=== PATIENT | male | born 1955 | race Caucasian/White ===

== ENCOUNTER 2018-12-16 13:38 | Emergency (ER) | payer MEDICARE ==
--- NOTE | 2018-12-16 13:32 | US ---
EXAMINATION TYPE: US venous doppler duplex LE RT DATE OF EXAM: 12/16/2018 1:13 PM COMPARISON: NONE CLINICAL HISTORY: 62-year-old male M25.561 PAIN RT KNEE,M17.11 OSTEOARTHRITIS RT KNEE. Right leg pain SIDE PERFORMED: Right TECHNIQUE: The lower extremity deep venous system is examined utilizing real time linear array sonog fany with graded compression, doppler sonography and color-flow sonography. FINDINGS: VESSELS IMAGED: External Iliac Vein (EIV) Common Femoral Vein Deep Femoral Vein Greater Saphenous Vein * Femoral Vein Popliteal Vein Small Saphenous Vein * Proximal Calf Veins (* superficial vessels) Right Leg: Positive for DVT Positive DVT Right External Iliac Vein to the Popliteal Vein. IMPRESSION: Extensive acute DVT extending from the right external iliac vein down to the popliteal vein.
[2018-12-16 13:43] VITALS: BP 135/84; PULSE 56; RESP 18; TEMP 97.7
[2018-12-16] MEDS ORDERED: APIXABAN 5 MG TAB PO STA (14:25)
--- NOTE | 2018-12-16 14:30 | ED ---
Extremity Problem HPI - General Chief complaint: Extremity Problem,Nontraumatic Time Seen by Provider: 12/16/18 14:07 Source: patient, RN notes reviewed Mode of arrival: ambulatory Limitations: no limitations - History of Present Illness Initial comments: This a 62-year-old male presents emergency Department from outpatient ultrasound chief complaint of abnormal. PATIENT STATES HE DEVELOPED SOME RIGHT LEG PAIN ON SUNDAY SEEN BY ORTHOPEDICS TODAY SENT FOR AN ULTRASOUND AND IS POSITIVE FOR DVT. HE HAS NO HISTORY DVT DENIES CHEST PAIN OR SHORTNESS OF BREATH. PATIENT STATES HE HAS NO OTHER COMPLAINTS. PATIENT DENIES TAKING ANY CURRENT MEDICATIONS PATIENT DENIES ANY HISTORY OF LIVER OR KIDNEY DISEASE - Related Data Home Medications Medication Instructions Recorded Confirmed Acetaminophen Tab [Tylenol] 500 mg PO Q6H PRN 12/16/18 12/16/18 Previous Rx's Medication Instructions Recorded Apixaban [Eliquis] 0 mg PO DIRECTED #74 tablet 12/16/18 Allergies Allergy/AdvReac Type Severity Reaction Status Date / Time No Known Allergies Allergy Verified 12/16/18 13:59 Review of Systems ROS Statement: Those systems with pertinent positive or pertinent negative responses have been documented in the HPI. ROS Other: All systems not noted in ROS Statement are negative. Past Medical History Past Medical History: No Reported History History of Any Multi-Drug Resistant Organisms: None Reported Past Surgical History: Hernia Repair, Orthopedic Surgery Additional Past Surgical History / Comment(s): Bladder surgery at Past Psychological History: No Psychological Hx Reported Smoking Status: Former smoker Past Alcohol Use History: Rare Past Drug Use History: Marijuana General Exam Limitations: no limitations General appearance: alert, in no apparent distress Head exam: Present: atraumatic, normocephalic, normal inspection Neck exam: Present: normal inspection. Absent: tenderness, meningismus, lymphadenopathy Respiratory exam: Present: normal lung sounds bilaterally. Absent: respiratory distress, wheezes, rales, rhonchi, stridor Cardiovascular Exam: Present: regular rate, normal rhythm, normal heart sounds. Absent: systolic murmur, diastolic murmur, rubs, gallop, clicks Extremities exam: Present: other (Right leg swelling and wall tenderness the right thigh, pulses are palpable in equal bilaterally) Course Vital Signs 12/16/18 13:39 Temperature 97.7 F Pulse Rate 56 L Respiratory 18 Rate Blood Pressure 135/84 O2 Sat by Pulse 99 Oximetry Medical Decision Making - Medical Decision Making 62-year-old male presented from for right leg pain. Patient has evidence of DVT on ultrasound external iliac to popliteal this is uncomplicated DVT, patient's vitals are stable patient will be discharged after Eliquis dose in the emergency department and discharged on a once prescription of Eliquis with close follow- up. Disposition Clinical Impression: Right leg DVT Disposition: HOME SELF-CARE Condition: Stable Instructions (If sedation given, give patient instructions): Deep Vein Thrombosis (DC) Additional Instructions: Please return to the Emergency Department if symptoms worsen or any other alfonso rns. Prescriptions: Apixaban [Eliquis] 0 mg PO DIRECTED #74 tablet Is patient prescribed a controlled substance at d/c from ED?: No Referrals: None,Stated [Primary Care Provider] - 1-2 days Alexandr Ruvalcaba MD [STAFF PHYSICIAN] - 1-2 days Time of Disposition: 14:30
== END 2018-12-16 14:35 | disposition home or self-care (01) ==
LOC: EC 13:38
DX: I82.421 Acute embolism and thrombosis of right iliac vein (principal); I82.431 Acute embolism and thrombosis of right popliteal vein; Z87.891 Personal history of nicotine dependence
CPT/HCPCS: 99283

== ENCOUNTER → 2018-12-30 | Outpatient (CLI) | payer MEDICARE ==
[2018-12-31 01:22] LABS: Cardiolipin Ab IgG Interp NEGATIVE (NEGATIVE); Cardiolipin Ab IgM Interp NEGATIVE (NEGATIVE); Cardiolipin IgA Antibody <0.5 U/mL; Cardiolipin IgM Antibody 1.8 U/mL
[2018-12-31 11:21] LABS: Activated Protein C Resistance 3.32 (1.60-4.90)
[2018-12-31 11:23] LABS: Act Protein C Resist Interp NEG; Anti-Thrombin III Activity 125 % (79-109); Protein C (Activity) 78 % (71-138)
[2018-12-31 11:38] LABS: Protein C Antigen 117 % (72-160)
[2018-12-31 14:14] LABS: Anti-Thrombin III Antigen 115 % (80 - 120); Free Protein S Antigen 92 % (57 - 171)
== END | disposition home or self-care (01) ==
LOC: LABWHC1 15:44
PROVIDERS: ATTEND Registered Nurse Oncology
DX: Z71.3 Dietary counseling and surveillance (principal)
CPT/HCPCS: 36415; 81240; 81241; 83090; 85300; 85301; 85302; 85303; 85306; 85307; 85384; 85613; 86146; 86147

== ENCOUNTER → 2019-01-01 | Outpatient (CLI) | payer MEDICARE | END | disposition home or self-care (01) | LOC: LABWHC1 13:55 | PROVIDERS: ATTEND Registered Nurse Oncology | DX: Z71.3 Dietary counseling and surveillance (principal) | CPT/HCPCS: 81240; 81241 ==

== ENCOUNTER → 2019-05-15 | Outpatient (CLI) | payer MEDICARE ==
--- NOTE | 2019-05-15 12:20 | CTL ---
EXAMINATION TYPE: CT Low Dose Lung DATE OF EXAM ORDERED: 05/15/2019 COMPARISON: HISTORY: . Low Dose CT Lung Screening CT DLP: 55.[address] CTDI: 1.6 mGy IV CONTRAST USED: None. SCREENING VISIT: First visit COMPARISON: None. TECHNIQUE: Low dose computed tomography scan was performed through the chest at 1 millimeter thick se ctions and reconstructed images in the coronal plane at [address] DIAGNOSTIC QUALITY: Satisfactory FINDINGS: LUNG NODULES: Not presentLeft lung: no nodules identified.Right lung: no nodules identified. LUNGS: COPD: Severity: None Fibrosis: Severity:None Lymph nodes: None Other findings: None RIGHT PLEURAL SPACE: Effusion: None Calcification: None Thickening: None Pneumothorax: None LEFT PLEURAL SPACE: Effusion: None Calcification: None Thickening: None Pneumothorax: None HEART: Heart Size: Mildly enlarged Coronary calcification: Mild Pericardial effusion: None OTHER FINDINGS: Upper abdomen: No significant abnormality Bony thorax: Degenerative changes Supraclavicular region: No significant abnormalityOther: No significant abnormalityI IMPRESSION: Negative FOLLOW UP CT CHEST RECOMMENDATION: Follow-up screening in one year. Smoking cessation advised. CT LUNG RAD: LUNG RAD CATEGORY 1 negative
--- NOTE | 2019-05-16 07:34 | US ---
EXAMINATION TYPE: US venous doppler duplex LE RT DATE OF EXAM: 05/15/2019 12:19 PM COMPARISON: 12/16/2018 CLINICAL HISTORY: I82.421,I82.431 DVT. follow up DVT. On blood thinners. No swelling or redness. N o pain. SIDE PERFORMED: Right TECHNIQUE: The lower extremity deep venous system is examined utilizing real time linear array sonog fany with graded compression, doppler sonography and color-flow sonography. VESSELS IMAGED: External Iliac Vein (EIV) Common Femoral Vein Deep Femoral Vein Greater Saphenous Vein * Femoral Vein Popliteal Vein Small Saphenous Vein * Proximal Calf Veins (* superficial vessels) Right Leg: Few peripheral echoes are seen of the right femoral vein appearing as an organizing throm bus. Incomplete compression of the right femoral vein. Popliteal vein appears compressible. Calf vein s demonstrate good blood flow. 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
[2019-05-16 13:24] LABS: APTT 35 Sec(s) (<43); Dilute Russell Viper Venom 44 Sec(s) (<44)
== END | disposition home or self-care (01) ==
LOC: RADCTMAIN 11:36
PROVIDERS: ATTEND Internal Medicine Hematology & Oncology
DX: Z12.2 Encounter for screening for malignant neoplasm of respiratory organs (principal); I82.511 Chronic embolism and thrombosis of right femoral vein; Z87.891 Personal history of nicotine dependence
CPT/HCPCS: 85730; 85613; 93971; G0297

== ENCOUNTER → 2019-09-17 | Outpatient (CLI) | payer MEDICARE ==
--- NOTE | 2019-09-17 10:09 | US ---
EXAMINATION TYPE: US venous doppler duplex LE RT DATE OF EXAM: 09/17/2019 10:02 AM COMPARISON: US May 15, 2019. CLINICAL HISTORY: I82.421, I82.431 DVT. H/O DVT, follow up study, pt states no complaints at this srikanth e SIDE PERFORMED: Right TECHNIQUE: The lower extremity deep venous system is examined utilizing real time linear array sonog fany with graded compression, doppler sonography and color-flow sonography. VESSELS IMAGED: External Iliac Vein (EIV) Common Femoral Vein Deep Femoral Vein Greater Saphenous Vein * Femoral Vein Popliteal Vein Small Saphenous Vein * Proximal Calf Veins (* superficial vessels) Right Leg: Negative for acute DVT, essentially unchanged from previous study, slight partial maurilio monster right femoral veins most likely due to chronic thrombus Probable Zuleta's cyst right pop fossa= 3.4 x 0.6 x 2.5 cm Grayscale, color doppler, spectral doppler imaging performed of the deep veins of the right lower ext remity. Persistent low lying echoes along the periphery of the right superficial femoral vein with i ncomplete compressibility. IMPRESSION: Persistent chronic partial occlusive thrombus of the right superficial femoral vein. No significant interval change. No new acute DVT identified.
== END | disposition home or self-care (01) ==
LOC: RADUSWWP 09:20
PROVIDERS: ATTEND Internal Medicine Hematology & Oncology
DX: I82.421 Acute embolism and thrombosis of right iliac vein (principal); I82.431 Acute embolism and thrombosis of right popliteal vein; Z71.3 Dietary counseling and surveillance

== ENCOUNTER → 2019-12-16 | Outpatient (CLI) | payer MEDICARE ==
--- NOTE | 2019-12-16 16:10 | US ---
EXAMINATION TYPE: US venous doppler duplex LE RT DATE OF EXAM: 12/16/2019 9:14 AM COMPARISON: 09/17/2019 CLINICAL HISTORY: 63-year-old male I82.421 Acute embolism of right iliac vein. History of DVT, follow -up to previous SIDE PERFORMED: Right TECHNIQUE: The lower extremity deep venous system is examined utilizing real time linear array sonog fany with graded compression, doppler sonography and color-flow sonography. FINDINGS: VESSELS IMAGED: External Iliac Vein (EIV) Common Femoral Vein Deep Femoral Vein Greater Saphenous Vein * Femoral Vein Popliteal Vein Small Saphenous Vein * Proximal Calf Veins (* superficial vessels) Right Leg: Negative for any occlusive, acute DVT; similar appearance to prior with a small amount of mural-based nonocclusive clot in the mid and lower femoral vein. IMPRESSION: Stable minimal mural-based chronic and nonocclusive DVT in the mid and lower femoral vein. No new or acute DVT seen within the right lower extremity imaged from the groin to the upper calf.
== END | disposition home or self-care (01) ==
LOC: RADUSWWP 08:54
PROVIDERS: ATTEND Internal Medicine Hematology & Oncology
DX: I82.511 Chronic embolism and thrombosis of right femoral vein (principal)

== ENCOUNTER → 2020-04-28 | Outpatient (CLI) | payer MEDICARE ==
--- NOTE | 2020-04-28 14:53 | CT ---
EXAMINATION TYPE: CT cervical spine wo con DATE OF EXAM: 04/28/2020 COMPARISON: Outside MRI cervical spine February 23, 2020. Outside cervical spine x-ray April 15 HISTORY: Neck pain with arm and hand numbness. CT DLP: 466.3 mGycm. Automated Exposure Control for Dose Reduction was Utilized. TECHNIQUE: CT scan of the cervical spine is obtained without contrast, axial images are obtained, sa gittal and coronal reformatted images are also reviewed. FINDINGS: Cervical spine is visualized in its entirety from C1 through upper thoracic levels, demonst rates slight grade 1 anterolisthesis C4 on C5 and retrolisthesis C5 on C6. Vertebral body heights are maintained. Prevertebral soft tissue appears within normal limits. The C1-C2 articulation is within normal limits on the coronal images. Mild disc space narrowing C4-C5 level with mild/moderate anteri or spurring. Mild to moderate disc space narrowing and anterior spurring C5-C6 level. Posterior spur disc complex effaces the anterior thecal sac at C5-C6 level. Posterior disc herniation C6-C7 level ef faces the anterior thecal sac. Review of axial images shows C2-C3 and C3-C4 level to appear within normal limits. Axial images at C4-C5 level show tiny central disc protrusion mildly effacing the anterior thecal sac , patent bilateral neural foramina. Findings correlate with outside MRI. Axial images at C5-C6 level show spondylolisthesis with posterior spur disc complex effacing the ante rior thecal sac and with mild left-sided neural foraminal narrowing. Axial images at C6-C7 level showed broad based right paracentral disc protrusion effacing the anterio r thecal sac and causing [id number] right-sided neural foraminal narrowing. Findings correlate with outside MRI. Axial images at C7-T1 level are within normal limits. IMPRESSION: Multilevel degenerative changes C4-C5 through C6-C7 levels as detailed above. No signifi cant degenerative progression from outside MRI.
== END | disposition home or self-care (01) ==
LOC: RADCTMAIN 13:20
PROVIDERS: ATTEND Orthopaedic Surgery
DX: M47.812 Spondylosis without myelopathy or radiculopathy, cervical region (principal)
CPT/HCPCS: 72125

== ENCOUNTER → 2020-12-14 | Outpatient (CLI) | payer MEDICARE ==
--- NOTE | 2020-12-14 19:04 | US ---
EXAMINATION TYPE: US venous doppler duplex LE RT DATE OF EXAM: 12/14/2020 12:39 PM COMPARISON: 12/16/2019 CLINICAL HISTORY: 64-year-old male I82.421 Acute embolism R leg. SIDE PERFORMED: Right TECHNIQUE: The lower extremity deep venous system is examined utilizing real time linear array sonog fany with graded compression, doppler sonography and color-flow sonography. FINDINGS: VESSELS IMAGED: Common Femoral Vein Deep Femoral Vein Greater Saphenous Vein * Femoral Vein Popliteal Vein Small Saphenous Vein * Proximal Calf Veins (* superficial vessels) Right Leg: Appears negative for DVT IMPRESSION: No evidence for DVT within the right lower extremity imaged from the groin to the upper calf.
== END | disposition home or self-care (01) ==
LOC: RADUSWWP 12:11
PROVIDERS: ATTEND Internal Medicine Hematology & Oncology
DX: I82.421 Acute embolism and thrombosis of right iliac vein (principal)

== ENCOUNTER 2022-10-30 01:26 | Emergency (ER) | payer MEDICARE ==
--- NOTE | 2022-10-30 03:52 | ED ---
Extremity Problem HPI - General Chief complaint: Extremity Problem,Nontraumatic Stated complaint: Blood Clot Left Leg Time Seen by Provider: 10/30/22 03:22 Source: patient, RN notes reviewed, old records reviewed Mode of arrival: wheelchair Limitations: no limitations - History of Present Illness Initial comments: This is a 66-year-old male to the emergency department for evaluation. Patient states he has history of blood clot in his right leg and has severe pain in his left leg. Patient does feel like he has a blood clot coming to the emergency d epartment today for evaluation. Patient is not currently on blood thinners he has been on A[place] in the past from prior resulting DVT. No chest pain or shortness of breath, patient again does have history of DVT MD Complaint: extremity pain, extremity swelling -: days(s) Location: left, lower extremity -: Yes myalgia Radiation: proximal Severity scale (1-10): 7 Quality: aching Consistency: constant Improves with: nothing Worsens with: nothing Associated Symptoms: denies other symptoms - Related Data Home Medications Medication Instructions Recorded Confirmed Acetaminophen Tab [Tylenol] 500 mg PO Q6H PRN 12/16/18 12/16/18 Previous Rx's Medication Instructions Recorded Apixaban [Eliquis] 0 mg PO DIRECTED #74 tablet 12/16/18 Apixaban [Eliquis Starter Pack 5 - 10 mg PO DIRECTED 30 Days 10/30/22 (for VTE)] #1 each Apixaban [Eliquis] 5 mg PO BID #60 tab 10/30/22 Allergies Allergy/AdvReac Type Severity Reaction Status Date / Time No Known Allergies Allergy Verified 10/30/22 01:31 Review of Systems ROS Statement: Those systems with pertinent positive or pertinent negative responses have been documented in the HPI. ROS Other: All systems not noted in ROS Statement are negative. Past Medical History Past Medical History: No Reported History Additional Past Medical History / Comment(s): DVT right leg History of Any Multi-Drug Resistant Organisms: None Reported Past Surgical History: Hernia Repair, Orthopedic Surgery Additional Past Surgical History / Comment(s): Bladder surgery at Past Psychological History: No Psychological Hx Reported Past Alcohol Use History: Rare Past Drug Use History: Marijuana General Exam Limitations: no limitations General appearance: alert, in no apparent distress Head exam: Present: atraumatic, normocephalic, normal inspection Eye exam: Present: normal appearance, PERRL, EOMI. Absent: scleral icterus, conjunctival injection, periorbital swelling ENT exam: Present: normal exam, mucous membranes moist Neck exam: Present: normal inspection. Absent: tenderness, meningismus, lymphadenopathy Respiratory exam: Present: normal lung sounds bilaterally. Absent: respiratory distress, wheezes, rales, rhonchi, stridor Cardiovascular Exam: Present: regular rate, normal rhythm, normal heart sounds. Absent: systolic murmur, diastolic murmur, rubs, gallop, clicks GI/Abdominal exam: Present: soft, normal bowel sounds. Absent: distended, tenderness, guarding, rebound, rigid Extremities exam: Present: normal inspection, full ROM, normal capillary refill, calf tenderness, other (Left leg tenderness). Absent: tenderness, pedal edema, joint swelling Back exam: Present: normal inspection Neurological exam: Present: alert, oriented X3, CN II-XII intact Psychiatric exam: Present: normal affect, normal mood Skin exam: Present: warm, dry, intact, normal color. Absent: rash Course Vital Signs 10/30/22 10/30/22 10/30/22 01:27 04:41 06:00 Temperature 97.8 F 97.9 F Pulse Rate 91 68 80 Respiratory 18 16 16 Rate Blood Pressure 146/81 111/72 108/73 O2 Sat by Pulse 100 99 98 Oximetry - Reevaluation(s) Reevaluation #1: 10/30/22 06:28 Medical records reviewed Reevaluation #2: 10/30/22 06:29 Patient has no change in symptoms here in the ER Reevaluation #3: 10/30/22 06:29 Patient and informed results and questions answered Reevaluation #4: 10/30/22 06:29 Was pt. sent in by a medical professional or institution (, PA, PROJECT DEVELOPMENT LEADER, urgent care, hospital, or [facility]...) When possible be specific @ -no Did you speak to anyone other than the patient for history (EMS, parent, family, police, friend...)? What history was obtained from this source @ -no Did you review nursing and triage notes (agree or disagree)? Why? @ -agree Are old charts reviewed (outside hosp., previous admission, EMS record, old EKG, old radiological studies, urgent care reports/EKG's, [facility] records)? Report findings @ -yes Differential Diagnosis (chest pain, altered mental status, abdominal pain women, abdominal pain men, vaginal bleeding, weakness, fever, dyspnea, syncope, headache, dizziness, GI bleed, back pain, seizure, CVA, palpatations, mental health, musculoskeletal)? @ -prior EKG interpreted by me (3pts min.). @ -no X-rays interpreted by me (1pt min.). @ -no CT interpreted by me (1pt min.). @ -no U/S interpreted by me (1pt. min.). @ -yes What testing was considered but not performed or refused? (CT, X-rays, U/S, labs)? Why? @ -none What meds were considered but not given or refused? Why? @ -none Did you discuss the management of the patient with other professionals (professionals i.e. , PA, PROJECT DEVELOPMENT LEADER, lab, RT, psych nurse, social work job titles, lean engineer, teacher, driver license reviewing officer, case finishing machine adjuster)? Give summary @ -no Was smoking cessation discussed for >3mins.? @ -no Was critical care preformed (if so, how long)? @ -no Were there social determinants of health that impacted care today? How? (Homelessness, low income, unemployed, alcoholism, drug addiction, transportation, low edu. Level, literacy, decrease access to med. care, [facility], rehab)? @ -none Was there de-escalation of care discussed even if they declined (Discuss DNR or withdrawal of care, Hospice)? DNR status @ -no What co-morbidities impacted this encounter? (DM, HTN, Smoking, COPD, CAD, Cancer, CVA, ARF, Chemo, Hep., AIDS, mental health diagnosis, sleep apnea, morbid obesity)? @ -none Was patient admitted / discharged? Hospital course, mention meds given and route, prescriptions, significant lab abnormalities, going to OR and other pertinent info. @ -66 male to the emergency department for evaluation of significant left lower extremity pain positive for DVT patient will be placed on Eliquis and can be discharged home no chest pain or shortness of breath Discharged Undiagnosed new problem with uncertain prognosis? @ -no Drug Therapy requiring intensive monitoring for toxicity (Heparin, Nitro, Insulin, Cardizem)? @ -no Were any procedures done? @ -no Diagnosis/symptom? @ -Positive left leg for DVT Acute, or Chronic, or Acute on Chronic? @ -Acute Uncomplicated (without systemic symptoms) or Complicated (systemic symptoms)? @ -Complicated Side effects of treatment? @ -no Exacerbation, Progression, or Severe Exacerbation? @ -exacerbation Poses a threat to life or bodily function? How? (Chest pain, [place], [place], pneumonia, PE, COPD, DKA, ARF, appy, cholecystitis, CVA, Diverticulitis, Homicidal, Suicidal, threat to staff... and all critical care pts) @ -yes DVT leading to PE Medical Decision Making - Medical Decision Making 66 male to the emergency department for evaluation of significant left lower extremity pain positive for DVT patient will be placed on Eliquis and can be discharged home no chest pain or shortness of breath - Radiology Data Radiology results: report reviewed (Ultrasound of the Left Lower Extremity Positive for DVT), image reviewed Disposition Clinical Impression: Deep vein thrombosis (DVT) of lower extremity Disposition: HOME SELF-CARE Condition: Good Instructions (If sedation given, give patient instructions): Deep Vein Thrombosis (ED) Prescriptions: Apixaban [Eliquis] 5 mg PO BID #60 tab Apixaban [Eliquis Starter Pack (for VTE)] 5 - 10 mg PO DIRECTED 30 Days #1 each Is patient prescribed a controlled substance at d/c from ED?: No Referrals: Gentry Clayton MD [Primary Care Provider] - 1-2 days Time of Disposition: 06:00
--- NOTE | 2022-10-30 03:56 | US ---
EXAM: US Duplex Left Lower Extremity Veins CLINICAL HISTORY: ITS.REASON US Reason: pain TECHNIQUE: Real-time duplex ultrasound scan of the left lower extremity veins integrating B-mode two-dimensional vascular structure, Doppler spectral analysis, color flow Doppler imaging and compression. COMPARISON: No relevant prior studies available. IMPRESSION: Extensive thrombosis throughout the common femoral vein, femoral vein, popliteal vein, and into the calf. <MYCVCSECTION> Communications: 10/30/22 04:02 Verify Receipt Verified receipt with JOANN Garrison in the ER for Dr. García on 10/30 04:01 (-04:00)
[2022-10-30 04:42] VITALS: RESP 16
[2022-10-30] MEDS ORDERED: APIXABAN 5 MG TAB PO STA (05:52)
[2022-10-30 06:03] VITALS: BP 108/73; PULSE 80; TEMP 97.9
== END 2022-10-30 06:03 | disposition home or self-care (01) ==
LOC: EC 01:26
DX: I82.432 Acute embolism and thrombosis of left popliteal vein (principal); I82.412 Acute embolism and thrombosis of left femoral vein; F12.90 Cannabis use, unspecified, uncomplicated
CPT/HCPCS: 99284

== ENCOUNTER 2023-05-21 15:03 | Emergency (ER) | payer MEDICARE ==
[2023-05-21 15:46] VITALS: RESP 18
--- NOTE | 2023-05-21 15:46 | ED ---
General Adult HPI - General Chief complaint: Extremity Injury, Upper Stated complaint: Fall Time Seen by Provider: 05/21/23 15:44 Source: patient, RN notes reviewed Mode of arrival: ambulatory Limitations: no limitations - History of Present Illness Initial comments: Patient is a 67-year-old male presented to ER with chief complaint of a fall. Patient states she slipped while wearing socks on his hardwood floor landing on his left shoulder. Patient states he does take Eliquis. He states that the pain is now traveling up into his neck. He states he does not remember hitting his head or loss of consciousness. Patient reports he does have a history of a rotator injury on the left side. Denies any paresthesias or other injuries. Denies any dizziness, shortness of breath, chest pain prior to fall. - Related Data Home Medications Medication Instructions Recorded Confirmed Acetaminophen Tab [Tylenol] 500 mg PO Q6H PRN 12/16/18 12/16/18 Previous Rx's Medication Instructions Recorded Apixaban [Eliquis] 0 mg PO DIRECTED #74 tablet 12/16/18 Apixaban [Eliquis Starter Pack 5 - 10 mg PO DIRECTED 30 Days 10/30/22 (for VTE)] #1 each Apixaban [Eliquis] 5 mg PO BID #60 tab 10/30/22 Allergies Allergy/AdvReac Type Severity Reaction Status Date / Time No Known Allergies Allergy Verified 10/30/22 01:31 Review of Systems ROS Statement: Those systems with pertinent positive or pertinent negative responses have been documented in the HPI. ROS Other: All systems not noted in ROS Statement are negative. Past Medical History Past Medical History: No Reported History Additional Past Medical History / Comment(s): DVT right leg History of Any Multi-Drug Resistant Organisms: None Reported Past Surgical History: Hernia Repair, Orthopedic Surgery Additional Past Surgical History / Comment(s): Bladder surgery at Past Psychological History: No Psychological Hx Reported Smoking Status: Former smoker Past Alcohol Use History: Rare Past Drug Use History: Marijuana General Exam Limitations: no limitations General appearance: alert, in no apparent distress Head exam: Present: atraumatic, normocephalic, normal inspection Eye exam: Present: normal appearance, PERRL, EOMI. Absent: scleral icterus, conjunctival injection, periorbital swelling Pupils: Present: normal accommodation ENT exam: Present: normal exam, mucous membranes moist Neck exam: Present: normal inspection. Absent: tenderness, meningismus, lymphadenopathy Respiratory exam: Present: normal lung sounds bilaterally. Absent: respiratory distress, wheezes, rales, rhonchi, stridor Cardiovascular Exam: Present: regular rate, normal rhythm, normal heart sounds. Absent: systolic murmur, diastolic murmur, rubs, gallop, clicks Extremities exam: Present: tenderness (Left AC joint.), normal capillary refill, other (2+ left radial pulse. Sensation intact. Patient had limited range of motion of shoulder due to pain.) Neurological exam: Present: alert, oriented X3, CN II-XII intact Psychiatric exam: Present: normal affect, normal mood Skin exam: Present: warm, dry, intact, normal color. Absent: rash Course Vital Signs 05/21/23 05/21/23 15:20 16:54 Temperature 98.6 F 97.9 F Pulse Rate 77 65 Respiratory 18 18 Rate Blood Pressure 144/84 153/80 O2 Sat by Pulse 99 100 Oximetry Medical Decision Making - Medical Decision Making Was pt. sent in by a medical professional or institution (, PA, COMMERCIAL ENERGY AUDITOR, urgent care, hospital, or care home...) When possible be specific @ -No Did you speak to anyone other than the patient for history (EMS, parent, family, police, friend...)? What history was obtained from this source @ -No Did you review nursing and triage notes (agree or disagree)? Why? @ -I reviewed and agree with nursing and triage notes Were old charts reviewed (outside hosp., previous admission, EMS record, old EKG, old radiological studies, urgent care reports/EKG's, care home records)? Report findings @ -No old charts were reviewed Differential Diagnosis (chest pain, altered mental status, abdominal pain women, abdominal pain men, vaginal bleeding, weakness, fever, dyspnea, syncope, headache, dizziness, GI bleed, back pain, seizure, CVA, palpatations, mental health, musculoskeletal)? @ -Differential Musculoskeletal Muscular strain, contusion, ligament sprain, fracture, arthritis, septic arthritis, bursitis, cellulitis, muscle spasm, nerve compression, DVT, arterial occlusion, herpes zoster, electrolyte abnormality, tumor.... This is not meant to be in all inclusive list EKG interpreted by me (3pts min.). @ -None X-rays interpreted by me (1pt min.). @ -Left shoulder x-ray interpreted by me shows a vertically oriented clavicle fracture located 2 cm medial to AC joint. CT interpreted by me (1pt min.). @ -CT brain C-spine interpreted by me shows no acute process. U/S interpreted by me (1pt. min.). @ -None done What testing was considered but not performed or refused? (CT, X-rays, U/S, labs)? Why? @ -None What meds were considered but not given or refused? Why? @ -None Did you discuss the management of the patient with other professionals (professionals i.e. Dr., PA, COMMERCIAL ENERGY AUDITOR, lab, RT, psych nurse, administrator social welfare, corporation lawyer, teacher, mechanical engineering officer, case operator)? Give summary @ -No Was smoking cessation discussed for >3mins.? @ -No Was critical care preformed (if so, how long)? @ -No Were there social determinants of health that impacted care today? How? (Homelessness, low income, unemployed, alcoholism, drug addiction, transportation, low edu. Level, literacy, decrease access to med. care, fdc, rehab)? @ -No Was there de-escalation of care discussed even if they declined (Discuss DNR or withdrawal of care, Hospice)? DNR status @ -No What co-morbidities impacted this encounter? (DM, HTN, Smoking, COPD, CAD, Cancer, CVA, ARF, Chemo, Hep., AIDS, mental health diagnosis, sleep apnea, morbid obesity)? @ -History of DVTs on Eliquis Was patient admitted / discharged? Hospital course, mention meds given and route, prescriptions, significant lab abnormalities, going to OR and other pertinent info. @ -Discharge. Patient is a 67-year-old male presented to ER with a chief complaint of a fall. History and physical exam are completed. Vitals stable. No signs of acute distress. Patient's left upper extremity neurovascularly i ntact. Limited active range of motion due to pain. Patient received [place] in the ER with mild relief of his pain. X-ray of left shoulder interpreted by me shows a vertically oriented clavicle fracture located 2 cm medial to AC joint. CT brain performed due to concern of head injury and patient is on Eliquis. CT negative for acute process. Patient placed in a sling. Results discussed with patient, all questions answered. Advised him to follow-up with orthopedics in the next 1 to 2 days. Referral given. Return parameters discussed. Patient be discharged stable condition with follow-up to orthopedics. Patient expressed understanding and agreement with care plan. Undiagnosed new problem with uncertain prognosis? @ -No Drug Therapy requiring intensive monitoring for toxicity (Heparin, Nitro, Insulin, Cardizem)? @ -No Were any procedures done? @ -No Diagnosis/symptom? @ -Left clavicle fracture/fall Acute, or Chronic, or Acute on Chronic? @ -Acute Uncomplicated (without systemic symptoms) or Complicated (systemic symptoms)? @ -Uncomplicated Side effects of treatment? @ -No Exacerbation, Progression, or Severe Exacerbation? @ -No Poses a threat to life or bodily function? How? (Chest pain, [place], MS, pneumonia, PE, COPD, DKA, ARF, appy, cholecystitis, CVA, Diverticulitis, Homicidal, Suicidal, threat to staff... and all critical care pts) @ -No - Radiology Data Radiology results: report reviewed, image reviewed Disposition Clinical Impression: Clavicle fracture Disposition: HOME SELF-CARE Condition: Stable Instructions (If sedation given, give patient instructions): Clavicle Fracture (DC) Additional Instructions: Please follow-up with orthopedics in the next 1 to 2 days. Return to the ER for any new or worsening symptoms. Is patient prescribed a controlled substance at d/c from ED?: No Referrals: None,Stated [Primary Care Provider] - 1-2 days Josue Mathis MD [STAFF PHYSICIAN] - 1-2 days Time of Disposition: 16:44
--- NOTE | 2023-05-21 16:21 | CT ---
EXAMINATION TYPE: CT brain cspine wo con DATE OF EXAM: 05/21/2023 COMPARISON: CT cervical spine dated 04/28/2020 HISTORY: fall on thinners CT DLP: 1180.2 mGycm Automated exposure control for dose reduction was used. TECHNIQUE: CT scan of the head and cervical spine are performed without contrast. Findings: Head CT: Ventricles, basal cisterns and sulci over convexities within normal limits and there is no mass, mass effect or shift of midline structures. There is a moderate focal area of encephalomalacia involving the right parietal cortex and subcortica l white matter consistent with a remote infarct. There is marked decreased density in the periventricular white matter consistent with chronic ischemi c white matter demyelination. There is no acute intra or extra-axial hemorrhage. Posterior fossa including the brainstem, fourth ventricle and cerebellar pontine angles are grossly n ormal. The intraorbital contents appear normal and symmetric. Visualized paranasal sinuses are well aerated. The calvarium is intact. CT cervical spine: Craniovertebral junction relationships and prevertebral soft tissues are normal. The cervical vertebral segments are normal in height and alignment and there is no fracture subluxati on. There is moderate degenerative disc disease with moderate disc space narrowing and spondylosis at the C3-4-5 and C5-6 levels. The facet joints are intact. There is moderate degeneration of the C5-6 unco vertebral joint on the left. The bony cervical canal is widely patent. There is mild bony neural foraminal encroachment at C5-6 on the left. The paraspinal soft tissues unremarkable. IMPRESSION: 1. Head CT: No acute bleed or mass effect. Remote right parietal infarct. 2. CT cervical spine: No acute trauma. Mild degenerative changes as described above.
[2023-05-21] MEDS: HYDROcodone/APAP 5-325MG 1 EACH TAB PO STA (16:26)
--- NOTE | 2023-05-21 16:36 | XR ---
PROCEDURE: XR shoulder complete LT - 3V DATE AND TIME: 05/21/2023 4:16 PM CLINICAL INDICATION: PHH; fall, pain TECHNIQUE: Department protocol COMPARISON: None FINDINGS/IMPRESSION: There is a left clavicle vertically-oriented fracture located 2 cm medial to the acromioclavicular hoang int. No other fractures. Glenohumeral joint is congruent.
[2023-05-21] MEDS: ACET/COD 300 MG/30 MG STARTER PACK 6 TAB BTL PO STA (16:59)
[2023-05-21 17:13] VITALS: BP 153/80; PULSE 65; TEMP 97.9
== END 2023-05-21 17:07 | disposition home or self-care (01) ==
LOC: EC 15:03
DX: S42.032A Displaced fracture of lateral end of left clavicle, initial encounter for closed fracture (principal); F12.90 Cannabis use, unspecified, uncomplicated; Z87.891 Personal history of nicotine dependence; W01.0XXA Fall on same level from slipping, tripping and stumbling without subsequent striking against object, initial encounter
CPT/HCPCS: 70450; 72125; 99284

== ENCOUNTER 2023-05-24 16:10 | Emergency (ER) | payer MEDICARE ==
--- NOTE | 2023-05-24 18:33 | XR ---
EXAMINATION: XR chest 2V: 05/24/2023 5:18 PM CLINICAL INDICATION: Weakness TECHNIQUE: Departmental protocol COMPARISON: None FINDINGS/IMPRESSION: The lungs are clear, and the pleural spaces are negative. The cardiac silhouette is not enlarged. The soft tissues are negative for acute findings. The known left clavicle fracture demonstrated. No other acute skeletal findings.
[2023-05-24] MEDS: SODIUM CHLORIDE 0.9% 500 ML 500 ML IV STA (18:38)
--- NOTE | 2023-05-24 18:38 | XR ---
PROCEDURE: XR lumbar spine 2 or 3V - 3V DATE AND TIME: 05/24/2023 5:27 PM CLINICAL INDICATION: PHH; Lower extremity weakness TECHNIQUE: Department protocol COMPARISON: None FINDINGS: There is no fracture or malalignment. Moderate lumbar spondylosis changes seen at all levels. IMPRESSION: No definite acute process.
[2023-05-24 18:51] LABS: Basophils % (A) 0 %; Eosinophils # (A) 0.1 k/uL (0-0.7); Eosinophils % (A) 1 %; HCT 35.4 % (39.0-53.0); HGB 12.1 gm/dL (13.0-17.5); Lymphocytes # (A) 1.2 k/uL (1.0-4.8); Lymphocytes % (A) 17 %; MCH 34.3 pg (25.0-35.0); MCHC 34.2 g/dL (31.0-37.0); MCV 100.4 fL (80.0-100.0); Mean Platelet Volume 7.5; Monocytes # (A) 0.5 k/uL (0-1.0); Monocytes % (A) 7 %; Neutrophils # (A) 5.2 k/uL (1.3-7.7); Neutrophils % (A) 73 %; Platelet Count 215 k/uL (150-450); RBC 3.52 m/uL (4.30-5.90); RDW 12.8 % (11.5-15.5); WBC 7.2 k/uL (3.8-10.6)
[2023-05-24 19:08] LABS: ALT 17 U/L (4-49); AST 20 U/L (17-59); African American GFR (CKD) >90 (>60 ml/min/1.73 sqM); Albumin 3.5 g/dL (3.5-5.0); Alkaline Phosphatase 74 U/L (38-126); Anion Gap 7 mmol/L; Blood Urea Nitrogen 24 mg/dL (9-20); Calcium 8.6 mg/dL (8.4-10.2); Carbon Dioxide 20 mmol/L (22-30); Chloride 114 mmol/L (98-107); Glucose 83 mg/dL (74-99); Magnesium 1.7 mg/dL (1.6-2.3); Non-African American GFR(CKD) >90 (>60 ml/min/1.73 sqM); Potassium 4.5 mmol/L (3.5-5.1); Sodium 141 mmol/L (137-145); Total Bilirubin 0.6 mg/dL (0.2-1.3); Total Protein 6.1 g/dL (6.3-8.2)
[2023-05-24 19:10] LABS: Prothrombin Time 11.2 sec (10.0-12.5)
[2023-05-24 19:44] LABS: Partial Thromboplastin Time 19.8 sec (22.0-30.0)
[2023-05-24] MEDS: ACETAMINOPHEN TAB 500 MG TAB PO STA (20:09)
[2023-05-24] MEDS: IBUPROFEN 600 MG TAB PO STA (20:09)
--- NOTE | 2023-05-24 20:57 | ED ---
General Adult HPI - General Source: patient, EMS, RN notes reviewed, old records reviewed Mode of arrival: EMS Limitations: no limitations <Michael Rapp - Last Filed: 05/24/23 21:10> - General Source: RN notes reviewed, old records reviewed Mode of arrival: EMS Limitations: no limitations, altered mental status - History of Present Illness -: days(s) Severity scale (1-10): 0 Consistency: constant Improves with: none Worsens with: none Associated Symptoms: confusion Treatments Prior to Arrival: none <Michael Freedman - Last Filed: 05/25/23 06:30> - General Chief complaint: Fall Stated complaint: Weakness Time Seen by Provider: 05/24/23 17:00 - History of Present Illness Initial comments: This is a 67-year-old male who presents to the emergency department stating that for the last 6 months has been extremely weak and keeps falling. The other day he fell and broke his clavicle. Patient comes in today stating he fell but did not hurt himself but he does know why he is so weak. Patient denies of fever patient denies a headache patient denies numbness weakness. Patient has any chest pain difficulty breathing or shortness of breath. Patient has any abdominal pain patient has nausea vomiting diarrhea. Patient states he only is weak in his legs and some days he feels fine but the last couple has been extremely weak to the point where he feels like he is going to fall and actually did fall today. (Michael Rapp) - Related Data Previous Rx's Medication Instructions Recorded Apixaban [Eliquis] 5 mg PO BID #60 tab 10/30/22 Amoxic-Pot Clav 875-125Mg 1 tab PO Q12HR #20 tablet 05/25/23 [Augmentin 875-125] Allergies Allergy/AdvReac Type Severity Reaction Status Date / Time No Known Allergies Allergy Verified 05/24/23 17:36 Review of Systems ROS Other: All systems not noted in ROS Statement are negative. <Michael Rapp - Last Filed: 05/24/23 21:10> ROS Other: All systems not noted in ROS Statement are negative. <Michael Freedman - Last Filed: 05/25/23 06:30> ROS Statement: Those systems with pertinent positive or pertinent negative responses have been documented in the HPI. Past Medical History Past Medical History: No Reported History Additional Past Medical History / Comment(s): DVT right leg History of Any Multi-Drug Resistant Organisms: None Reported Past Surgical History: Hernia Repair, Orthopedic Surgery Additional Past Surgical History / Comment(s): Bladder surgery at Past Psychological History: No Psychological Hx Reported Smoking Status: Former smoker Past Alcohol Use History: Rare Past Drug Use History: Marijuana <Michael Rapp - Last Filed: 05/24/23 21:10> General Exam Limitations: no limitations <Michael Rapp - Last Filed: 05/24/23 21:10> General appearance: alert, in no apparent distress Head exam: Present: atraumatic, normocephalic, normal inspection Eye exam: Present: normal appearance, PERRL, EOMI. Absent: scleral icterus, conjunctival injection, periorbital swelling ENT exam: Present: normal exam, mucous membranes moist Neck exam: Present: normal inspection. Absent: tenderness, meningismus, lymphadenopathy Respiratory exam: Present: normal lung sounds bilaterally. Absent: respiratory distress, wheezes, rales, rhonchi, stridor Cardiovascular Exam: Present: regular rate, normal rhythm, normal heart sounds. Absent: systolic murmur, diastolic murmur, rubs, gallop, clicks GI/Abdominal exam: Present: soft, normal bowel sounds. Absent: distended, tenderness, guarding, rebound, rigid Extremities exam: Present: normal inspection, full ROM, normal capillary refill. Absent: tenderness, pedal edema, joint swelling, calf tenderness Back exam: Present: normal inspection Neurological exam: Present: alert, oriented X3, CN II-XII intact Psychiatric exam: Present: normal affect, normal mood Skin exam: Present: warm, dry, intact, normal color. Absent: rash <Michael Freedman - Last Filed: 05/25/23 06:30> - General Exam Comments Initial Comments: GENERAL: Patient is well-developed and well-nourished. Patient is nontoxic and well- hydrated and is in mild distress. After patient had been here while the patient did spike a fever ENT: Neck is soft and supple. No significant lymphadenopathy is noted. Oropharynx is clear. Moist mucous membranes. Neck has full range of motion without eliciting any pain. EYES: The sclera were anicteric and conjunctiva were pink and moist. Extraocular movements were intact and pupils were equal round and reactive to light. E yelids were unremarkable. PULMONARY: Unlabored respirations. Good breath sounds bilaterally. No audible rales rhonchi or wheezing was noted. CARDIOVASCULAR: There is a regular rate and rhythm without any murmurs gallops or rubs. ABDOMEN: Soft and nontender with normal bowel sounds. SKIN: Skin is clear with no lesions or rashes and otherwise unremarkable. NEUROLOGIC: Patient is alert and oriented x3. Cranial nerves II through XII are grossly intact. Motor and sensory are also intact. Normal speech, volume and content. Symmetrical smile. MUSCULOSKELETAL: Normal extremities with adequate strength and full range of motion. LYMPHATICS: No significant lymphadenopathy is noted PSYCHIATRIC: Normal psychiatric evaluation. (Michael Rapp) Course <Michael Freedman - Last Filed: 05/25/23 06:30> Vital Signs 05/24/23 05/24/23 05/24/23 16:18 16:25 18:40 Temperature 99.8 F H 98.1 F Pulse Rate 81 80 77 Respiratory 16 16 20 Rate Blood Pressure 147/82 147/82 133/80 O2 Sat by Pulse 98 98 98 Oximetry 05/25/23 05/25/23 00:07 01:35 Temperature 98.2 F Pulse Rate 61 61 Respiratory 16 16 Rate Blood Pressure 102/71 113/72 O2 Sat by Pulse 97 97 Oximetry - Reevaluation(s) Reevaluation #1: 05/25/23 medical record is reviewed (Michael Freedman) Reevaluation #2: 05/25/23 patient symptoms unchanged (Michael Freedman) Reevaluation #3: 05/25/23 patient is infromed of results and questions answered (Michael Freedman) Reevaluation #4: Was pt. sent in by a medical professional or institution (, PA, DIE SINKER APPRENTICE, urgent care, hospital, or long term...) When possible be specific @ -no Did you speak to anyone other than the patient for history (EMS, parent, family, police, friend...)? What history was obtained from this source @ -no Did you review nursing and triage notes (agree or disagree)? Why? @ -agree Are old charts reviewed (outside hosp., previous admission, EMS record, old EKG, old radiological studies, urgent care reports/EKG's, long term records)? Report findings @ -yes Differential Diagnosis (chest pain, altered mental status, abdominal pain women, abdominal pain men, vaginal bleeding, weakness, fever, dyspnea, syncope, headache, dizziness, GI bleed, back pain, seizure, CVA, palpatations, mental health, musculoskeletal)? @ -prior EKG interpreted by me (3pts min.). @ -yes X-rays interpreted by me (1pt min.). @ -yes negative for acute disease CT interpreted by me (1pt min.). @ -no U/S interpreted by me (1pt. min.). @ -no What testing was considered but not performed or refused? (CT, X-rays, U/S, labs)? Why? @ -none What meds were considered but not given or refused? Why? @ -none Did you discuss the management of the patient with other professionals (professionals i.e. , PA, DIE SINKER APPRENTICE, lab, RT, psych nurse, home health care social worker, trailhead maintenance worker, teacher, driver's license reviewing officer, case hardener)? Give summary @ -no Was smoking cessation discussed for >3mins.? @ -no Was critical care preformed (if so, how long)? @ -no Were there social determinants of health that impacted care today? How? (Homelessness, low income, unemployed, alcoholism, drug addiction, transportation, low edu. Level, literacy, decrease access to med. care, prison, rehab)? @ -none Was there de-escalation of care discussed even if they declined (Discuss DNR or withdrawal of care, Hospice)? DNR status @ -no What co-morbidities impacted this encounter? (DM, HTN, Smoking, COPD, CAD, Cancer, CVA, ARF, Chemo, Hep., AIDS, mental health diagnosis, sleep apnea, morbid obesity)? @ -none Was patient admitted / discharged? Hospital course, mention meds given and route, prescriptions, significant lab abnormalities, going to OR and other pertinent info. @ - Undiagnosed new problem with uncertain prognosis? @ -no Drug Therapy requiring intensive monitoring for toxicity (Heparin, Nitro, Insulin, Cardizem)? @ -no Were any procedures done? @ -no Diagnosis/symptom? @ - Acute, or Chronic, or Acute on Chronic? @ -Acute Uncomplicated (without systemic symptoms) or Complicated (systemic symptoms)? @ -Complicated Side effects of treatment? @ -no Exacerbation, Progression, or Severe Exacerbation? @ -exacerbation Poses a threat to life or bodily function? How? (Chest pain, USA, MO, pneumonia, PE, COPD, DKA, ARF, appy, cholecystitis, CVA, Diverticulitis, Homicidal, Suicidal, threat to staff... and all critical care pts) @ -yes (Michael Freedman) Reevaluation #5: Differential Fever: Pneumonia, viral URI, endocarditis, myocarditis, pericarditis, otitis, sinusitis, peritonsillar Abscess, retropharyngeal Abscess, epiglottitis, bradley tonitis, appendicitis, Sally cystitis, diverticulitis, hepatitis, colitis, UTI, PID, TOA, pyelonephritis, prostatitis, epididymitis, meningitis, encephalitis, pulmonary embolism, CVA, thyroid storm, pancreatitis, adrenal crisis, cavernous sinus thrombosis, this is not meant to be an all-inclusive list. (Michael Freedman) - Consultations Consultation #1: spoke w Dr Clayton who is ok for discharging home (Michael Freedman) Medical Decision Making - Lab Data Result diagrams: 05/24/23 18:36 05/24/23 18:36 <Michael Rapp - Last Filed: 05/24/23 21:10> - Lab Data Result diagrams: 05/24/23 18:36 05/24/23 18:36 - Radiology Data Radiology results: report reviewed (CXR and XR LS spine is negative for acute disease), image reviewed <Michael Freedman - Last Filed: 05/25/23 06:30> - Medical Decision Making EKG is interpreted by me EKG shows a sinus rhythm at 74 bpm SD interval 144 QRS is 86 QT interval 361 QTc is 389. Patient's EKG shows no ST segment ovation or depression. Was pt. sent in by a medical professional or institution (, PA, DIE SINKER APPRENTICE, urgent care, hospital, or long term...) When possible be specific @ -[No] Did you speak to anyone other than the patient for history (EMS, parent, family, police, friend...)? What history was obtained from this source @ -[No] Did you review nursing and triage notes (agree or disagree)? Why? @ -[I reviewed and agree with nursing and triage notes] Were old charts reviewed (outside hosp., previous admission, EMS record, old EKG, old radiological studies, urgent care reports/EKG's, long term records)? Report findings @ -[No old charts were reviewed] Differential Diagnosis (chest pain, altered mental status, abdominal pain women, abdominal pain men, vaginal bleeding, weakness, fever, dyspnea, syncope, hea dache, dizziness, GI bleed, back pain, seizure, CVA, palpatations, mental health, musculoskeletal)? @ -Differential Weakness: Hypoglycemia, shock, sepsis, hyponatremia, anemia, infection, MO, ETOH, adverse medicine reaction, overdose, stroke, this is not meant to be an all-inclusive list. EKG interpreted by me (3pts min.). @ -[As above] X-rays interpreted by me (1pt min.). @ -Chest x-ray showed no acute abnormality. Lumbosacral spine showed no acute abnormality. CT interpreted by me (1pt min.). @ -[None done] U/S interpreted by me (1pt. min.). @ -[None done] What testing was considered but not performed or refused? (CT, X-rays, U/S, labs)? Why? @ -[None] What meds were considered but not given or refused? Why? @ -[None] Did you discuss the management of the patient with other professionals (professionals i.e. , PA, DIE SINKER APPRENTICE, lab, RT, psych nurse, home health care social worker, trailhead maintenance worker, teacher, driver's license reviewing officer, case hardener)? Give summary @ -[No] Was smoking cessation discussed for >3mins.? @ -[No] Was critical care preformed (if so, how long)? @ -[No] Were there social determinants of health that impacted care today? How? (Homelessness, low income, unemployed, alcoholism, drug addiction, transporta tion, low edu. Level, literacy, decrease access to med. care, prison, rehab)? @ -[No] Was there de-escalation of care discussed even if they declined (Discuss DNR or withdrawal of care, Hospice)? DNR status @ -[No] What co-morbidities impacted this encounter? (DM, HTN, Smoking, COPD, CAD, Cancer, CVA, ARF, Chemo, Hep., AIDS, mental health diagnosis, sleep apnea, morbid obesity)? @ -[None] Was patient admitted / discharged? Hospital course, mention meds given and route, prescriptions, significant lab abnormalities, going to OR and other pertinent info. @ -Dr. Freedman take over the care of this patient at 9:00 (Michael Rapp) 67 male to the ED co weakness with likely UTI, will discharge home after talking to PCP who states patient has not wanted inpatient skilled nursing rehab and will DC home. (Michael Freedman) - Lab Data Lab Results 05/24/23 05/24/23 05/24/23 Range/Units 18:36 18:36 18:36 WBC 7.2 (3.8-10.6) k/uL RBC 3.52 L (4.30-5.90) m/uL Hgb 12.1 L (13.0-17.5) gm/dL Hct 35.4 L (39.0-53.0) % MCV 100.4 H (80.0-100.0) fL MCH 34.3 (25.0-35.0) pg MCHC 34.2 (31.0-37.0) g/dL RDW 12.8 (11.5-15.5) % Plt Count 215 (150-450) k/uL MPV 7.5 Neutrophils % 73 % Lymphocytes % 17 % Monocytes % 7 % Eosinophils % 1 % Basophils % 0 % Neutrophils # 5.2 (1.3-7.7) k/uL Lymphocytes # 1.2 (1.0-4.8) k/uL Monocytes # 0.5 (0-1.0) k/uL Eosinophils # 0.1 (0-0.7) k/uL Basophils # 0.0 (0-0.2) k/uL PT 11.2 (10.0-12.5) sec INR 1.0 (<1.2) APTT 19.8 L (22.0-30.0) sec Sodium 141 (137-145) mmol/L Potassium 4.5 (3.5-5.1) mmol/L Chloride 114 H (98-107) mmol/L Carbon Dioxide 20 L (22-30) mmol/L Anion Gap 7 mmol/L BUN 24 H (9-20) mg/dL Creatinine 0.77 (0.66-1.25) mg/dL Est GFR (CKD-EPI)AfAm >90 (>60 ml/min/1.73 sqM) Est GFR (CKD-EPI)NonAf >90 (>60 ml/min/1.73 sqM) Glucose 83 (74-99) mg/dL Plasma Lactic Acid Cristino (0.7-2.0) mmol/L Calcium 8.6 (8.4-10.2) mg/dL Magnesium 1.7 (1.6-2.3) mg/dL Total Bilirubin 0.6 (0.2-1.3) mg/dL AST 20 (17-59) U/L ALT 17 (4-49) U/L Alkaline Phosphatase 74 (38-126) U/L Troponin I (0.000-0.034) ng/mL Total Protein 6.1 L (6.3-8.2) g/dL Albumin 3.5 (3.5-5.0) g/dL Influenza Type A (PCR) (Not Detectd) Influenza Type B (PCR) (Not Detectd) RSV (PCR) (Not Detectd) SARS-CoV-2 (PCR) (Not Detectd) 05/24/23 05/24/23 05/24/23 Range/Units 18:36 18:36 20:15 WBC (3.8-10.6) k/uL RBC (4.30-5.90) m/uL Hgb (13.0-17.5) gm/dL Hct (39.0-53.0) % MCV (80.0-100.0) fL MCH (25.0-35.0) pg MCHC (31.0-37.0) g/dL RDW (11.5-15.5) % Plt Count (150-450) k/uL MPV Neutrophils % % Lymphocytes % % Monocytes % % Eosinophils % % Basophils % % Neutrophils # (1.3-7.7) k/uL Lymphocytes # (1.0-4.8) k/uL Monocytes # (0-1.0) k/uL Eosinophils # (0-0.7) k/uL Basophils # (0-0.2) k/uL PT (10.0-12.5) sec INR (<1.2) APTT (22.0-30.0) sec Sodium (137-145) mmol/L Potassium (3.5-5.1) mmol/L Chloride (98-107) mmol/L Carbon Dioxide (22-30) mmol/L Anion Gap mmol/L BUN (9-20) mg/dL Creatinine (0.66-1.25) mg/dL Est GFR (CKD-EPI)AfAm (>60 ml/min/1.73 sqM) Est GFR (CKD-EPI)NonAf (>60 ml/min/1.73 sqM) Glucose (74-99) mg/dL Plasma Lactic Acid Cristino 1.4 (0.7-2.0) mmol/L Calcium (8.4-10.2) mg/dL Magnesium (1.6-2.3) mg/dL Total Bilirubin (0.2-1.3) mg/dL AST (17-59) U/L ALT (4-49) U/L Alkaline Phosphatase (38-126) U/L Troponin I <0.012 (0.000-0.034) ng/mL Total Protein (6.3-8.2) g/dL Albumin (3.5-5.0) g/dL Influenza Type A (PCR) Not Detected (Not Detectd) Influenza Type B (PCR) Not Detected (Not Detectd) RSV (PCR) Not Detected (Not Detectd) SARS-CoV-2 (PCR) Not Detected (Not Detectd) 05/24/23 Range/Units 20:15 WBC (3.8-10.6) k/uL RBC (4.30-5.90) m/uL Hgb (13.0-17.5) gm/dL Hct (39.0-53.0) % MCV (80.0-100.0) fL MCH (25.0-35.0) pg MCHC (31.0-37.0) g/dL RDW (11.5-15.5) % Plt Count (150-450) k/uL MPV Neutrophils % % Lymphocytes % % Monocytes % % Eosinophils % % Basophils % % Neutrophils # (1.3-7.7) k/uL Lymphocytes # (1.0-4.8) k/uL Monocytes # (0-1.0) k/uL Eosinophils # (0-0.7) k/uL Basophils # (0-0.2) k/uL PT (10.0-12.5) sec INR (<1.2) APTT (22.0-30.0) sec Sodium (137-145) mmol/L Potassium (3.5-5.1) mmol/L Chloride (98-107) mmol/L Carbon Dioxide (22-30) mmol/L Anion Gap mmol/L BUN (9-20) mg/dL Creatinine (0.66-1.25) mg/dL Est GFR (CKD-EPI)AfAm (>60 ml/min/1.73 sqM) Est GFR (CKD-EPI)NonAf (>60 ml/min/1.73 sqM) Glucose (74-99) mg/dL Plasma Lactic Acid Cristino 1.6 (0.7-2.0) mmol/L Calcium (8.4-10.2) mg/dL Magnesium (1.6-2.3) mg/dL Total Bilirubin (0.2-1.3) mg/dL AST (17-59) U/L ALT (4-49) U/L Alkaline Phosphatase (38-126) U/L Troponin I (0.000-0.034) ng/mL Total Protein (6.3-8.2) g/dL Albumin (3.5-5.0) g/dL Influenza Type A (PCR) (Not Detectd) Influenza Type B (PCR) (Not Detectd) RSV (PCR) (Not Detectd) SARS-CoV-2 (PCR) (Not Detectd) Disposition <Michael Rapp - Last Filed: 05/24/23 21:10> Is patient prescribed a controlled substance at d/c from ED?: No Time of Disposition: 00:30 <Michael Freedman - Last Filed: 05/25/23 06:30> Clinical Impression: Fall, Weakness, UTI (urinary tract infection), Clavicle fracture Disposition: HOME SELF-CARE Condition: Fair Instructions (If sedation given, give patient instructions): Fall Prevention for Older Adults (ED) Prescriptions: Amoxic-Pot Clav 875-125Mg [Augmentin 875-125] 1 tab PO Q12HR #20 tablet Referrals: Gentry Clayton MD [Primary Care Provider] - 1-2 days
[2023-05-25 00:43] VITALS: PULSE 61; RESP 16
[2023-05-25 01:50] VITALS: BP 113/72; TEMP 98.2
== END 2023-05-25 01:46 | disposition home or self-care (01) ==
LOC: EC 16:10
DX: S12.9XXA Fracture of neck, unspecified, initial encounter (principal); R53.1 Weakness; N39.0 Urinary tract infection, site not specified; F12.90 Cannabis use, unspecified, uncomplicated; Z87.891 Personal history of nicotine dependence; W19.XXXA Unspecified fall, initial encounter
CPT/HCPCS: 36415; 71046; 72100; 80053; 83605; 83735; 84484; 85025; 85610; 85730; 87040; 87636; 93005; 96360; 99285

== ENCOUNTER 2023-12-09 18:55 | Inpatient (IN) | payer MEDICARE ==
--- NOTE | 2023-12-09 19:56 | ED ---
Weakness HPI - General Chief complaint: Weakness Stated complaint: weakness/disorientation Time Seen by Provider: 12/09/23 19:30 Source: patient, RN notes reviewed Mode of arrival: ambulatory Limitations: no limitations - History of Present Illness Initial comments: 67-year-old male presenting with increased weakness for several months. States he has been falling frequently due to generalized weakness. His sister is present upon examination and explains that patient lives alone and she is becoming concerned about his safety at home to frequent falls. She reports that their father had Parkinson's and she believes pt may be developing this. States he fell 2 days ago and was on the floor for 12 hours before his landlord found him. States he also fell yesterday when he hit his head and is complaining of right elbow and hip pain after the fall. He has been able to ambulate since the fall. No other injuries from the fall. He does admit to blood thinners. Denies chest pain or shortness of breath. Patient's sister Lesly Moseley phone number [phone] - Related Data Previous Rx's Medication Instructions Recorded Apixaban [Eliquis] 5 mg PO BID #60 tab 10/30/22 Allergies Allergy/AdvReac Type Severity Reaction Status Date / Time No Known Allergies Allergy Verified 12/09/23 19:21 Review of Systems ROS Statement: Those systems with pertinent positive or pertinent negative responses have been documented in the HPI. ROS Other: All systems not noted in ROS Statement are negative. Past Medical History Past Medical History: No Reported History Additional Past Medical History / Comment(s): DVT right leg History of Any Multi-Drug Resistant Organisms: None Reported Past Surgical History: Hernia Repair, Orthopedic Surgery Additional Past Surgical History / Comment(s): Bladder surgery at Past Psychological History: No Psychological Hx Reported Smoking Status: Former smoker Past Alcohol Use History: Rare Past Drug Use History: Marijuana General Exam Limitations: no limitations General appearance: alert, in no apparent distress, other (Essential tremor present) Head exam: Present: normocephalic. Absent: normal inspection (Mild abrasion on right side of head) Eye exam: Present: normal appearance, PERRL, EOMI. Absent: scleral icterus, conjunctival injection, periorbital swelling ENT exam: Present: normal exam, mucous membranes moist Neck exam: Present: normal inspection. Absent: tenderness, meningismus, lymphadenopathy Respiratory exam: Present: normal lung sounds bilaterally. Absent: respiratory distress, wheezes, rales, rhonchi, stridor Cardiovascular Exam: Present: regular rate, normal rhythm, normal heart sounds. Absent: systolic murmur, diastolic murmur, rubs, gallop, clicks GI/Abdominal exam: Present: soft, normal bowel sounds. Absent: distended, tenderness, guarding, rebound, rigid Extremities exam: Present: full ROM, tenderness (Hematoma and tenderness on dorsal aspect of right elbow. Diffuse right hip tenderness), normal capillary refill, other (Full radial and DP pulses bilaterally. Full sensation in upper and lower extremities bilaterally). Absent: pedal edema, joint swelling, calf tenderness Back exam: Present: normal inspection Neurological exam: Present: alert, oriented X3, CN II-XII intact Psychiatric exam: Present: normal affect, normal mood Skin exam: Present: warm, dry, intact, normal color. Absent: rash Course Vital Signs 12/09/23 12/09/23 12/09/23 19:02 20:41 21:27 Temperature 98.6 F Pulse Rate 91 80 75 Respiratory 22 18 16 Rate Blood Pressure 142/77 113/75 110/77 O2 Sat by Pulse 99 100 99 Oximetry EKG Findings - EKG Results: EKG: interpreted by ERMD (EKG reveals normal sinus rhythm with no ST changes. Ventricular rate 80 bpm, MD interval 147, QRS duration 88, QT/QTc 323/369) Medical Decision Making - Medical Decision Making Was pt. sent in by a medical professional or institution (, PA, [employer] [employer], urgent care, hospital, or halfway...) When possible be specific @ -No Did you speak to anyone other than the patient for history (EMS, parent, family, police, friend...)? What history was obtained from this source @ -Patient's sister supplemented history Did you review nursing and triage notes (agree or disagree)? Why? @ -I reviewed and agree with nursing and triage notes Were old charts reviewed (outside hosp., previous admission, EMS record, old EKG, old radiological studies, urgent care reports/EKG's, halfway records)? Report findings @ -No old charts were reviewed Differential Diagnosis (chest pain, altered mental status, abdominal pain women, abdominal pain men, vaginal bleeding, weakness, fever, dyspnea, syncope, headache, dizziness, GI bleed, back pain, seizure, CVA, palpatations, mental health, musculoskeletal)? @ -Differential Weakness: Hypoglycemia, shock, sepsis, hyponatremia, anemia, infection, PA, ETOH, adverse medicine reaction, overdose, stroke, this is not meant to be an all-inclusive list. EKG interpreted by me (3pts min.). @ -As above X-rays interpreted by me (1pt min.). @ -Chest x-ray reveals no acute process, right hip and elbow x-ray reveal no acute process CT interpreted by me (1pt min.). @ -CT of head and neck revealed no acute intracranial process, remote injury to right parietal/occipital lobe unchanged from last CT U/S interpreted by me (1pt. min.). @ -None done What testing was considered but not performed or refused? (CT, X-rays, U/S, labs)? Why? @ -None What meds were considered but not given or refused? Why? @ -None Did you discuss the management of the patient with other professionals (professionals i.e. , PA, [employer] [employer], lab, RT, psych nurse, social media specialist, shoemaker custom, teacher, plain clothes police officer, telehealth case manager)? Give summary @ -I spoke with Dr. Clayton who accepts admission at this time for acute rhabdomyolysis with consultation to nephrology services Was smoking cessation discussed for >3mins.? @ -No Was critical care preformed (if so, how long)? @ -No Were there social determinants of health that impacted care today? How? (Homelessness, low income, unemployed, alcoholism, drug addiction, transportation, low edu. Level, literacy, decrease access to med. care, longterm, rehab)? @ -No Was there de-escalation of care discussed even if they declined (Discuss DNR or withdrawal of care, Hospice)? DNR status @ -No What co-morbidities impacted this encounter? (DM, HTN, Smoking, COPD, CAD, Cancer, CVA, ARF, Chemo, Hep., AIDS, mental health diagnosis, sleep apnea, morbid obesity)? @ -None Was patient admitted / discharged? Hospital course, mention meds given and route, prescriptions, significant lab abnormalities, going to OR and other pertinent info. @ -Patient was admitted. Patient was seen and evaluated for generalized weakness increasing over the past several months causing frequent falls. He has had multiple falls over the weekend including head injury. Patient is on thinners. Patient has been able to ambulate since the falls. CT of the head and neck is unremarkable. Chest x-ray, right elbow, and right hip x-ray no acute process. Laboratory studies including CBC, CMP, troponin, lactic acid, CPK remarkable CPK of 3957, troponin of 0.070, CO2 14, anion gap 14. Patient started on IV fluids. Diagnosis of acute rhabdomyolysis discussed with patient and sister. I spoke with Dr. Clayton who accepts admission at this time for acute rhabdomyolysis with consultation to nephrology services. Patient is agreeable to plan. Case was discussed with my ED attending Dr. Maldonado. Undiagnosed new problem with uncertain prognosis? @ -No Drug Therapy requiring intensive monitoring for toxicity (Heparin, Nitro, Insulin, Cardizem)? @ -No Were any procedures done? @ -No Diagnosis/symptom? @ -Acute rhabdomyolysis Acute, or Chronic, or Acute on Chronic? @ -Acute Uncomplicated (without systemic symptoms) or Complicated (systemic symptoms)? @ -Complicated Side effects of treatment? @ -No Exacerbation, Progression, or Severe Exacerbation? @ -No Poses a threat to life or bodily function? How? (Chest pain, USA, PA, pneumonia, PE, COPD, DKA, ARF, appy, cholecystitis, CVA, Diverticulitis, Homicidal, Suicidal, threat to staff... and all critical care pts) @ -Yes - Lab Data Result diagrams: 12/09/23 19:40 12/09/23 19:40 Lab Results 12/09/23 12/09/23 12/09/23 Range/Units 19:40 19:40 19:40 WBC 10.4 (3.8-10.6) k/uL RBC 4.23 L (4.30-5.90) m/uL Hgb 14.6 (13.0-17.5) gm/dL Hct 41.4 (39.0-53.0) % MCV 97.9 (80.0-100.0) fL MCH 34.5 (25.0-35.0) pg MCHC 35.2 (31.0-37.0) g/dL RDW 12.8 (11.5-15.5) % Plt Count 254 (150-450) k/uL MPV 7.2 Neutrophils % 70 % Lymphocytes % 16 % Monocytes % 10 % Eosinophils % 1 % Basophils % 0 % Neutrophils # 7.2 (1.3-7.7) k/uL Lymphocytes # 1.6 (1.0-4.8) k/uL Monocytes # 1.1 H (0-1.0) k/uL Eosinophils # 0.1 (0-0.7) k/uL Basophils # 0.0 (0-0.2) k/uL PT 10.9 (10.0-12.5) sec INR 1.0 (<1.2) APTT 22.4 (22.0-30.0) sec Sodium 148 H (137-145) mmol/L Potassium 4.7 (3.5-5.1) mmol/L Chloride 120 H (98-107) mmol/L Carbon Dioxide 14 L (22-30) mmol/L Anion Gap 14 mmol/L BUN 74 H (9-20) mg/dL Creatinine 1.03 (0.66-1.25) mg/dL Est GFR (CKD-EPI)AfAm 86 (>60 ml/min/1.73 sqM) Est GFR (CKD-EPI)NonAf 74 (>60 ml/min/1.73 sqM) Glucose 95 (74-99) mg/dL Plasma Lactic Acid Cristino (0.7-2.0) mmol/L Calcium 9.6 (8.4-10.2) mg/dL Total Bilirubin 1.0 (0.2-1.3) mg/dL AST 136 H (17-59) U/L ALT 54 H (4-49) U/L Alkaline Phosphatase 57 (38-126) U/L Creatine Kinase (55-170) U/L Troponin I (0.000-0.034) ng/mL Total Protein 8.0 (6.3-8.2) g/dL Albumin 4.5 (3.5-5.0) g/dL 12/09/23 12/09/23 12/09/23 Range/Units 19:40 19:40 19:40 WBC (3.8-10.6) k/uL RBC (4.30-5.90) m/uL Hgb (13.0-17.5) gm/dL Hct (39.0-53.0) % MCV (80.0-100.0) fL MCH (25.0-35.0) pg MCHC (31.0-37.0) g/dL RDW (11.5-15.5) % Plt Count (150-450) k/uL MPV Neutrophils % % Lymphocytes % % Monocytes % % Eosinophils % % Basophils % % Neutrophils # (1.3-7.7) k/uL Lymphocytes # (1.0-4.8) k/uL Monocytes # (0-1.0) k/uL Eosinophils # (0-0.7) k/uL Basophils # (0-0.2) k/uL PT (10.0-12.5) sec INR (<1.2) APTT (22.0-30.0) sec Sodium (137-145) mmol/L Potassium (3.5-5.1) mmol/L Chloride (98-107) mmol/L Carbon Dioxide (22-30) mmol/L Anion Gap mmol/L BUN (9-20) mg/dL Creatinine (0.66-1.25) mg/dL Est GFR (CKD-EPI)AfAm (>60 ml/min/1.73 sqM) Est GFR (CKD-EPI)NonAf (>60 ml/min/1.73 sqM) Glucose (74-99) mg/dL Plasma Lactic Acid Cristino 1.4 (0.7-2.0) mmol/L Calcium (8.4-10.2) mg/dL Total Bilirubin (0.2-1.3) mg/dL AST (17-59) U/L ALT (4-49) U/L Alkaline Phosphatase (38-126) U/L Creatine Kinase 3957 H* (55-170) U/L Troponin I 0.070 H* (0.000-0.034) ng/mL Total Protein (6.3-8.2) g/dL Albumin (3.5-5.0) g/dL Disposition Clinical Impression: Rhabdomyolysis Disposition: ADMITTED IP TO THIS HOSP Condition: Stable Referrals: Gentry Clayton MD [Primary Care Provider] - 1-2 days Time of Disposition: 22:22
[2023-12-09 20:09] LABS: Basophils % (A) 0 %; Eosinophils # (A) 0.1 k/uL (0-0.7); Eosinophils % (A) 1 %; HCT 41.4 % (39.0-53.0); HGB 14.6 gm/dL (13.0-17.5); Lymphocytes # (A) 1.6 k/uL (1.0-4.8); Lymphocytes % (A) 16 %; MCH 34.5 pg (25.0-35.0); MCHC 35.2 g/dL (31.0-37.0); MCV 97.9 fL (80.0-100.0); Mean Platelet Volume 7.2; Monocytes # (A) 1.1 k/uL (0-1.0); Monocytes % (A) 10 %; Neutrophils # (A) 7.2 k/uL (1.3-7.7); Neutrophils % (A) 70 %; Platelet Count 254 k/uL (150-450); RBC 4.23 m/uL (4.30-5.90); RDW 12.8 % (11.5-15.5); WBC 10.4 k/uL (3.8-10.6)
--- NOTE | 2023-12-09 20:18 | XR ---
EXAMINATION TYPE: XR chest 2V DATE OF EXAM: 12/09/2023 8:02 PM CLINICAL INDICATION: Male, 67 years old with history of Weakness; COMPARISON: 05/24/2023 TECHNIQUE: XR chest 2V Frontal view of the chest. FINDINGS: Lungs/Pleura: There is flattening of the diaphragm with increased lucency of the lungs. No evidence o f pneumothorax, pleural effusion or focal consolidation. Pulmonary vascularity: Unremarkable. Heart/mediastinum: Cardiomediastinal silhouette is unremarkable. Musculoskeletal: No acute osseous pathology. Other findings: None Lines/Tubes: IMPRESSION: 1. No acute cardiopulmonary disease process. 2. COPD changes.
--- NOTE | 2023-12-09 20:19 | XR ---
EXAMINATION TYPE: XR elbow complete RT DATE OF EXAM: 12/09/2023 8:02 PM CLINICAL INDICATION: Male, 67 years old with history of right elbow injury; H COMPARISON: None TECHNIQUE: XR elbow complete RT; elbow was examined in AP, lateral, and oblique projections. FINDINGS: No evidence of any acute osseous pathology, joint dislocation, or soft tissue swelling is n oted. No evidence of joint effusion is present. Enthesophyte formation of the collecting process. IMPRESSION: No evidence of acute fracture.
[2023-12-09 20:21] LABS: Partial Thromboplastin Time 22.4 sec (22.0-30.0); Prothrombin Time 10.9 sec (10.0-12.5)
--- NOTE | 2023-12-09 20:21 | XR ---
EXAMINATION TYPE: XR Hip Complete RT DATE OF EXAM: 12/09/2023 8:02 PM CLINICAL INDICATION: Male, 67 years old with history of right hip xray; [facility] COMPARISON: None. TECHNIQUE: XR Hip Complete RT; hip was examined in the frontal and lateral projections and a AP pelvi s. FINDINGS: Diastases of the No evidence for acute process or significant soft tissue swelling. Osteoph yte formation of the superior acetabulum of the hip. There is mild joint space narrowing. Surgical chandra ture. Appendix within the pelvis. IMPRESSION: 1. No evidence for acute process. 2. Mild hip osteoarthrosis. 3. Diastases of the pubic symphysis suggested. Correlate with history of injury.
[2023-12-09 20:27] LABS: Carbon Dioxide 14 mmol/L (22-30); Chloride 120 mmol/L (98-107); Glucose 95 mg/dL (74-99); Sodium 148 mmol/L (137-145)
--- NOTE | 2023-12-09 20:27 | CT ---
EXAMINATION TYPE: CT brain cspine wo con CT DLP: 1340.8 mGycm, Automated exposure control for dose reduction was used. DATE OF EXAM: 12/09/2023 8:15 PM COMPARISON: 05/21/2023 CLINICAL INDICATION: Male, 67 years old with history of pain; ams, weakness TECHNIQUE: Brain: Multiple axial CT images of the brain were obtained without IV contrast. Cspine: Axial CT images from the skull base to the inferior aspect of T2 we obtained without intraven ous contrast. Coronal and sagittal reformatted images were also reviewed. . FINDINGS: Brain: Extra-axial spaces: No abnormal extra-axial fluid collections. Ventricular system: Within normal limits Cerebral parenchyma: Encephalomalacia of the right occipital/parietal lobe from prior injury. No acut e intraparenchymal hemorrhage or mass effect. The whatley-white junction is well differentiated. Cerebellum: Unremarkable. Mass effect: No evidence of midline shift. Intracranial vasculature: unremarkable Soft tissues: Normal. Calvarium/osseous structures: No depressed skull fracture. Paranasal sinuses and mastoid air cells: Clear. Visualized orbits: Orbital contents are intact. Cervical spine: Fracture: None. Osseous structures: Multilevel degenerative disc disease changes with endplate spurring and disc oste ophyte complex's. Vertebral alignment: Within normal limits. Spinal canal/Neural Foramina: No evidence of significant spinal canal narrowing. No evidence for sign ificant neural foraminal stenosis. Neck soft tissues: Prevertebral soft tissues are within normal limits. Other: The airway is patent. The lung apices are clear. Atherosclerosis of the carotid bifurcations. IMPRESSION: Motion limited exam. 1. No acute intracranial process. 2. Remote injury to the right parietal/occipital lobe. 3. No evidence of cervical spine fracture. 4. Mild to moderate multilevel degenerative disc disease.
[2023-12-09 20:28] LABS: ALT 54 U/L (4-49); AST 136 U/L (17-59); African American GFR (CKD) 86 (>60 ml/min/1.73 sqM); Albumin 4.5 g/dL (3.5-5.0); Alkaline Phosphatase 57 U/L (38-126); Anion Gap 14 mmol/L; Blood Urea Nitrogen 74 mg/dL (9-20); Calcium 9.6 mg/dL (8.4-10.2); Non-African American GFR(CKD) 74 (>60 ml/min/1.73 sqM)
[2023-12-09 20:29] LABS: Potassium 4.7 mmol/L (3.5-5.1)
[2023-12-09] MEDS ORDERED: NALOXONE 0.4 MG/ML 1 ML VIAL IV PRN (22:18)
[2023-12-09] MEDS ORDERED: MORPHINE SULFATE 4 MG/ML SYRINGE IV PRN (22:18)
[2023-12-09] MEDS: SODIUM CHLORIDE 0.9% 1,000 ML IV STA (22:22)
[2023-12-09] MEDS: SODIUM CHLORIDE 0.9% 1,000 ML IV SCH (22:45)
[2023-12-10 07:03] LABS: Basophils % (A) 0 %; Eosinophils # (A) 0.1 k/uL (0-0.7); Eosinophils % (A) 2 %; HCT 37.2 % (39.0-53.0); HGB 13.1 gm/dL (13.0-17.5); Lymphocytes # (A) 1.8 k/uL (1.0-4.8); Lymphocytes % (A) 22 %; MCH 34.6 pg (25.0-35.0); MCHC 35.3 g/dL (31.0-37.0); MCV 98.1 fL (80.0-100.0); Mean Platelet Volume 7.5; Monocytes # (A) 0.5 k/uL (0-1.0); Monocytes % (A) 6 %; Neutrophils # (A) 5.5 k/uL (1.3-7.7); Neutrophils % (A) 69 %; Platelet Count 217 k/uL (150-450); RBC 3.79 m/uL (4.30-5.90); RDW 13.2 % (11.5-15.5); WBC 8.1 k/uL (3.8-10.6)
[2023-12-10 07:15] LABS: ALT 46 U/L (4-49); AST 85 U/L (17-59); African American GFR (CKD) >90 (>60 ml/min/1.73 sqM); Albumin 3.4 g/dL (3.5-5.0); Albumin/Globulin Ratio 1.3; Alkaline Phosphatase 59 U/L (38-126); Anion Gap 10 mmol/L; Blood Urea Nitrogen 58 mg/dL (9-20); Calcium 8.7 mg/dL (8.4-10.2); Carbon Dioxide 15 mmol/L (22-30); Chloride 121 mmol/L (98-107); Globulin 2.6 g/dL; Glucose 99 mg/dL (74-99); Non-African American GFR(CKD) 89 (>60 ml/min/1.73 sqM); Potassium 3.6 mmol/L (3.5-5.1); Sodium 146 mmol/L (137-145); Total Bilirubin 0.6 mg/dL (0.2-1.3)
--- NOTE | 2023-12-10 08:11 | US ---
EXAMINATION TYPE: US abdomen complete DATE OF EXAM: 12/10/2023 COMPARISON: NONE CLINICAL INDICATION: Male, 67 years old with history of Abx LFT and ADRIENNE; Pain TECHNIQUE: Multiple sonographic images of the abdomen are obtained. FINDINGS: EXAM MEASUREMENTS: Liver Length: 13.7 cm Gallbladder Wall: .2 cm CBD: .4 cm Right Kidney: 9.0 x 4.3 x 4.5 cm Left Kidney: 10.1 x 5.1 x 4.6 cm PRINCIPAL ANDROID DEVELOPER NOTES: Pancreas: Tail obscured by overlying bowel gas Liver: wnl Gallbladder: No stones seen Evidence for sonographic Frey's sign: No CBD: wnl Spleen: Obscured by overlying bowel gas Right Kidney: wnl Left Kidney: wnl Upper IVC: wnl Abd Aorta: wnl The liver is homogenous. The intrahepatic portion of the IVC and proximal abdominal aorta are within normal limits. There is no evidence of cholelithiasis. Common bile duct is unremarkable. The visu alized portions of the pancreas are homogenous. The spleen is unremarkable. Kidneys are symmetric a nd free of hydronephrosis. No renal lesions are seen. IMPRESSION: No significant abnormality seen.
--- NOTE | 2023-12-10 08:12 | P.HPIM ---
History of Present Illness H&P Date: 12/10/23 HISTORY OF PRESENT ILLNESS: 67-year-old With active medical history of DVT of the right leg still on anticoagulation, bladder deformity since , chronic pain syndrome, chronic degenerative disc disease, chronic arthritis with trauma to the hip specially the right side and had severe abnormal balance and gait is ambulating with walker most of the time does not use it has multiple fall and trauma related to. He fell apparently 2 days ago and was on the floor for more than half the day before his landlord found him and helped him out into the bed also he fell 1 more time yesterday and hit his head and right elbow and hip but he was able to ambulate has more injury and bruises all over his body from fall. Patient's sister seen him on 12/09/2023 and decided to bring him to the emergency department at [facility] where was seen and evaluated. At the time he looks very dehydrated with slightly bit low blood pressure decreased urine output. Workup with blood work shows bun of 74 with creatinine 1.03 with severe prerenal acute kidney injury found to have transaminitis with abnormal liver function test AST to ALT is 2-1 also CK was 3957 with troponin at 0.07. Patient was started hydration will admit patient to the hospital consult cardiology for elevated troponin repeat troponin a few hours also will consult nephrology for acute kidney injury and continue hydration for now. REVIEW OF SYSTEMS: CONSTITUTIONAL: Very thin malnourished does not look in any respiratory distress. EYES: No icterus sclerae, no conjunctivitis. EARS, NOSE, MOUTH, THROAT, and FACE: No sore throat, lymphadenopathy, carotid bruits or deformity. RESPIRATORY: No SOB cough or wheezes. CARDIOVASCULAR: No CP, Palpitation, PND, Orthopnea, or angina. GASTROINTESTINAL: No Abd pain, Nausea or vomiting, no Diarrhea or constipation, No GI Bleed, no distention or masses. GENITOURINARY: Negative for Hematuria or UTI, no kidney stones. INTEGUMENT/BREAST: Negative for any muscular injury with mild osteoarthritis.. HEMATOLOGIC/LYMPHATIC: Negative for bleed or purpura. MUSCULOSKELTAL: Multiple bruises over the finding of his body mostly right elbow and hip area. NEURLOGICAL: No LOC, Sz or syncope, blurred vision dizziness or abnormality.. BEHAVIORAL/PSYCH: Negative. ENDOCRINE: Negative. PHYSICAL EXAMINATION: General Appearance: Alert, cooperative, no distress, appears stated age. Neck HEENT: Supple, no lymphadenopathy, no thyroid enlargement, no carotid bruits. Lungs: Clear to auscultation without crackles or wheezes no rhonchi, no deformity. Chest Wall: Chest wall normal expansion with deep inspiration no tenderness and no deformity was found on exam, no costochondral pain or discomfort. Heart: Regular rate and rhythm, S1, S2 normal, no murmur, rub or gallop. Back: Scoliosis mild tenderness in the lower lumbar area with mild bruise. Abdomen: Soft, non-tender, bowel sounds active all four quadrants, no masses, no organomegaly. Extremities: Right elbow and knee has slight bit of bruise decreased with positive pulse dorsalis pedis bilaterally. Skin: Skin color, texture, tugor normal, no rashes or lesions. Neurologic: Alert oriented x3 cranial nerves II through XII intact, no motor deficit, no abnormal balance or gait. ASSESSMENT AND PLAN: _Acute rhabdomyolysis: Continue hydration repeat CK with troponin this morning consult nephrology. _Elevated troponin: With possible type II myocardial infarction from the severity of his rhabdomyolysis: Repeat EKG and consult cardiology repeat troponin again this morning. _Acute kidney injury: Mostly prerenal and mostly from severe dehydration and rhabdomyolysis continue hydration consult nephrology repeat CMP again this morning. _History of deep venous thrombosis: Continue anticoagulation with Eliquis. _Recurrent bladder infection and urinary deformity: Had recurrent infection in the past has been doing slightly better no UTI lately special catheter will be done to watch his urine output carefully. _Transaminitis: Not clear whether this is an alcoholism or not specially with the AST to ALT 2/1 liver function test will be repeated again and ultrasound might be done. _GI prophylaxis: Will start Pepcid 20 mg daily. _DVT prophylaxis: Will continue anticoagulation with Eliquis. CODE STATUS: Full code. Admit patient to the inpatient service for more than 2 night stay Past Medical History Past Medical History: No Reported History Additional Past Medical History / Comment(s): DVT right leg History of Any Multi-Drug Resistant Organisms: None Reported Past Surgical History: Hernia Repair, Orthopedic Surgery Additional Past Surgical History / Comment(s): Bladder surgery at Past Psychological History: No Psychological Hx Reported Smoking Status: Former smoker Past Alcohol Use History: Rare Past Drug Use History: Marijuana Medications and Allergies Home Medications Medication Instructions Recorded Confirmed Type Apixaban [Eliquis] 5 mg PO BID #60 tab 10/30/22 12/09/23 Rx Allergies Allergy/AdvReac Type Severity Reaction Status Date / Time No Known Allergies Allergy Verified 12/09/23 19:21 Physical Exam Vitals: Vital Signs Temp Pulse Resp BP Pulse Ox 12/10/23 02:00 66 16 104/78 98 12/10/23 00:00 69 18 114/72 98 12/09/23 22:00 76 16 125/74 99 12/09/23 21:27 75 16 110/77 99 12/09/23 20:41 80 18 113/75 100 12/09/23 19:02 98.6 F 91 22 142/77 99 Intake and Output 12/09/23 12/09/23 12/10/23 14:59 22:59 06:59 Other: Weight 55.792 kg Results CBC & Chem 7: 12/09/23 19:40 12/09/23 19:40 Labs: Abnormal Lab Results - Last 24 Hours (Table) 12/09/23 12/09/23 12/09/23 Range/Units 19:40 19:40 19:40 RBC 4.23 L (4.30-5.90) m/uL Monocytes # 1.1 H (0-1.0) k/uL Sodium 148 H (137-145) mmol/L Chloride 120 H (98-107) mmol/L Carbon Dioxide 14 L (22-30) mmol/L BUN 74 H (9-20) mg/dL AST 136 H (17-59) U/L ALT 54 H (4-49) U/L Creatine Kinase (55-170) U/L Troponin I 0.070 H* (0.000-0.034) ng/mL 12/09/23 Range/Units 19:40 RBC (4.30-5.90) m/uL Monocytes # (0-1.0) k/uL Sodium (137-145) mmol/L Chloride (98-107) mmol/L Carbon Dioxide (22-30) mmol/L BUN (9-20) mg/dL AST (17-59) U/L ALT (4-49) U/L Creatine Kinase 3957 H* (55-170) U/L Troponin I (0.000-0.034) ng/mL
[2023-12-10 08:18] LABS: Creatine Kinase 2307 U/L (55-170)
--- NOTE | 2023-12-10 08:52 | P.NPCON ---
History of Present Illness - Reason for Consult hypernatremia - History of Present Illness Reason for consultation: Hyponatremia and rhabdomyolysis History of present is: Patient is a 67-year-old male seen in renal consultation for rhabdomyolysis and hypernatremia. Patient was seen and examined in the emergency room. Patient's creatinine on admission was 1.03 and is 0.86 today. Sodium level was 148 and is 146 today. He is currently receiving normal saline at 75 cc an hour. Patient came to the hospital due to recurrent falls. Patient states he fell Sunday and Sunday. Patient states he was down on the floor for several hours but is not sure of the exact time. He denies use of nonsteroidals. Denies history of diabetes. Denies history of coronary artery disease. Denies family history of renal disease. Patient states his oral intake has been poor but has been drinking quite a bit of water. He denies losing consciousness. No chest pain or shortness of breath. CK level was 3957 on admission and is 05/05/2006 today. Vital signs are stable. General: No acute distress. HEENT: Head exam is unremarkable. LUNGS: No audible rhonchi or wheezes. HEART: Rate and Rhythm are regular. ABDOMEN: Nontender. EXTREMITITES: No clubbing, cyanosis, or edema. Edema. Past Medical History Past Medical History: No Reported History Additional Past Medical History / Comment(s): DVT right leg History of Any Multi-Drug Resistant Organisms: None Reported Past Surgical History: Hernia Repair, Orthopedic Surgery Additional Past Surgical History / Comment(s): Bladder surgery at Past Psychological History: No Psychological Hx Reported Smoking Status: Former smoker Past Alcohol Use History: Rare Past Drug Use History: Marijuana Medications and Allergies Home Medications Medication Instructions Recorded Confirmed Type Apixaban [Eliquis] 5 mg PO BID #60 tab 10/30/22 12/09/23 Rx Allergies Allergy/AdvReac Type Severity Reaction Status Date / Time No Known Allergies Allergy Verified 12/09/23 19:21 Physical Exam Vitals: Vital Signs Temp Pulse Resp BP Pulse Ox 12/10/23 06:00 63 16 120/74 98 12/10/23 04:00 68 16 132/75 98 12/10/23 02:00 66 16 104/78 98 12/10/23 00:00 69 18 114/72 98 12/09/23 22:00 76 16 125/74 99 12/09/23 21:27 75 16 110/77 99 12/09/23 20:41 80 18 113/75 100 12/09/23 19:02 98.6 F 91 22 142/77 99 Intake and Output 12/09/23 12/10/23 12/10/23 22:59 06:59 14:59 Other: Weight 55.792 kg Results - Lab Results Most recent lab results Calcium 8.7 mg/dL (8.4-10.2) 12/10/23 06:40 12/10/23 06:40 12/10/23 06:40 Assessment and Plan Plan: Assessment: 1. Mild acute kidney injury secondary to vasomotor nephropathy. Improved. Creatinine 0.86 today. 2. Rhabdomyolysis secondary to fall and immobility. CK level trending down. 3. Hypernatremia from lack of oral water intake. Better. 4. Metabolic acidosis secondary to IV fluids. Plan: Change IV fluids to D5 with 75 mEq of bicarb to be run at 100 cc an hour. Add oral bicarb. Repeat CK level in the morning. Encouraged oral intake. Avoid nephrotoxins. Thank you for the consultation. I will continue to follow the patient with you during his hospital stay.
[2023-12-10] MEDS: SODIUM BICARBONATE TAB 650 MG TAB PO SCH (09:56)
[2023-12-10] MEDS: APIXABAN 5 MG TAB PO SCH (09:56)
[2023-12-10] MEDS: DEXTROSE 5% IN WATER 1,000 ML with SODIUM BICARB (1 MEQ/ML) 75 ML IV SCH (09:57)
--- NOTE | 2023-12-10 10:17 | P.CRDCN ---
History of Present Illness History of present illness: HISTORY OF PRESENT ILLNESS: This is a 67-year-old male with a past medical history significant for DVT. Patient does not follow with a labor delivery specialist. We have been asked to see the patient in consultation for elevated troponin. Patient examined at the bedside in the emergency room. Patient presented to the hospital after sustaining a fall at home. Patient was apparently laying on the floor for about 12 hours. He does report that he fell twice this weekend. He is unsure why he is falling but does report feeling generally weak. Patient denies any chest pain or pressure. He denies any shortness of breath. DIAGNOSTICS: - EKG reveals sinus mechanism with no signs of acute ischemia - Chest xray COPD changes. Negative for acute process.. - Laboratory data: WBC 8.1. Hemoglobin 13.1. Platelet count 217. Sodium 146. Potassium 3.6. BUN 58. Creatinine 0.86. Creatinine kinase 3959. Troponin 0.070. 0.053. - Current home cardiac medications include Eliquis 5 mg twice a day REVIEW OF SYSTEMS: At the time of my exam: CONSTITUTIONAL: Denies fever or chills. HEENT: Denies blurred vision, vision changes, or eye pain. Denies hemoptysis CARDIOVASCULAR: Denies chest pain. Denies orthopnea. Denies PND. Denies palpitations RESPIRATORY: Denies shortness of breath. GASTROINTESTINAL: Denies abdominal pain. Denies nausea or vomiting. HEMATOLOGIC: Denies bleeding disorders. GENITOURINARY: Denies any blood in urine. SKIN: Denies pruitis. Denies rash. PHYSICAL EXAM: VITAL SIGNS: Reviewed. GENERAL: Well-developed in no acute distress. HEENT: Head is normocephalic. Pupils are equal, round. Sclerae anicteric. Mucous membranes of the mouth are moist. Neck supple. No JVD or thyromegaly LUNGS: Respirations even and unlabored. Lungs essentially clear to auscultation bilaterally. HEART: Regular rate and rhythm. S1 and S2 heard. ABDOMEN: Soft. Nondistended. Nontender. EXTREMITIES: Normal range of motion. No clubbing or cyanosis. Peripheral pulses intact. No lower extremity edema NEUROLOGIC: Awake and alert. Oriented x 3. ASSESSMENT: Status post mechanical fall Acute rhabdomyolysis Mild hypernatremia Mildly elevated LFTs Elevated troponins, type II [place], secondary to above, no evidence of acute coronary syndrome History of lower extremity DVT on Eliquis outpatient PLAN: An acute coronary event has been ruled out Obtain 2D echo to assess cardiac structure and function Resume Eliquis Further recommendations pending patient course Nurse practitioner note has been reviewed by physician. Signing provider agrees with the documented findings, assessment, and plan of care documented by NURSE RECEPTIONIST as a scribe. Past Medical History Past Medical History: No Reported History Additional Past Medical History / Comment(s): DVT right leg History of Any Multi-Drug Resistant Organisms: None Reported Past Surgical History: Hernia Repair, Orthopedic Surgery Additional Past Surgical History / Comment(s): Bladder surgery at Past Psychological History: No Psychological Hx Reported Smoking Status: Former smoker Past Alcohol Use History: Rare Past Drug Use History: Marijuana Medications and Allergies Home Medications Medication Instructions Recorded Confirmed Type Apixaban [Eliquis] 5 mg PO BID #60 tab 10/30/22 12/09/23 Rx Allergies Allergy/AdvReac Type Severity Reaction Status Date / Time No Known Allergies Allergy Verified 12/09/23 19:21 Physical Exam Vitals: Vital Signs Temp Pulse Resp BP Pulse Ox 12/10/23 06:00 63 16 120/74 98 12/10/23 04:00 68 16 132/75 98 12/10/23 02:00 66 16 104/78 98 12/10/23 00:00 69 18 114/72 98 12/09/23 22:00 76 16 125/74 99 12/09/23 21:27 75 16 110/77 99 12/09/23 20:41 80 18 113/75 100 12/09/23 19:02 98.6 F 91 22 142/77 99 Intake and Output 12/09/23 12/10/23 12/10/23 22:59 06:59 14:59 Other: Weight 55.792 kg Results 12/10/23 06:40 12/10/23 06:40 Cardiac Enzymes 12/09/23 12/09/23 12/10/23 Range/Units 19:40 19:40 06:40 AST 136 H 85 H (17-59) U/L Troponin I 0.070 H* (0.000-0.034) ng/mL 12/10/23 Range/Units 06:40 AST (17-59) U/L Troponin I 0.053 H* (0.000-0.034) ng/mL Coagulation 12/09/23 Range/Units 19:40 PT 10.9 (10.0-12.5) sec APTT 22.4 (22.0-30.0) sec CBC 12/09/23 12/10/23 Range/Units 19:40 06:40 WBC 10.4 8.1 (3.8-10.6) k/uL RBC 4.23 L 3.79 L (4.30-5.90) m/uL Hgb 14.6 13.1 (13.0-17.5) gm/dL Hct 41.4 37.2 L (39.0-53.0) % Plt Count 254 217 (150-450) k/uL Comprehensive Metabolic Panel 12/09/23 12/10/23 Range/Units 19:40 06:40 Sodium 148 H 146 H (137-145) mmol/L Potassium 4.7 3.6 (3.5-5.1) mmol/L Chloride 120 H 121 H (98-107) mmol/L Carbon Dioxide 14 L 15 L (22-30) mmol/L BUN 74 H 58 H (9-20) mg/dL Creatinine 1.03 0.86 (0.66-1.25) mg/dL Glucose 95 99 (74-99) mg/dL Calcium 9.6 8.7 (8.4-10.2) mg/dL AST 136 H 85 H (17-59) U/L ALT 54 H 46 (4-49) U/L Alkaline Phosphatase 57 59 (38-126) U/L Total Protein 8.0 6.0 L (6.3-8.2) g/dL Albumin 4.5 3.4 L (3.5-5.0) g/dL Current Medications Generic Name Dose Route Start Last Admin Trade Name Freq PRN Reason Stop Dose Admin Acetaminophen 650 mg 12/09/23 22:18 Acetaminophen Tab 325 Mg Tab PO Q6HR PRN Mild Pain or Fever > 100.5 Apixaban 5 mg 12/10/23 09:00 12/10/23 09:56 Apixaban 5 Mg Tab PO 5 mg BID KALI Administration Protocol Sodium Bicarbonate 75 ml/ 1,075 mls @ 100 mls/hr 12/10/23 09:00 12/10/23 09:57 Dextrose/Water IV 100 mls/hr .[id number] KALI Administration Morphine Sulfate 4 mg 12/09/23 22:18 Morphine Sulfate 4 Mg/Ml Syringe IV Q4HR PRN Severe Pain (Scale 7 to 10) Naloxone HCl 0.2 mg 12/09/23 22:18 Naloxone 0.4 Mg/Ml 1 Ml Vial IV Q2M PRN Opioid Reversal Sodium Bicarbonate 650 mg 12/10/23 09:00 12/10/23 09:56 Sodium Bicarbonate Tab 650 Mg Tab PO 650 mg BID KALI Administration Intake and Output 12/09/23 12/10/23 12/10/23 22:59 06:59 14:59 Other: Weight 55.792 kg 12/10/23 06:40 12/10/23 06:40
[2023-12-10] MEDS: ACETAMINOPHEN TAB 325 MG TAB PO PRN (10:28)
[2023-12-10 15:22] LABS: Appearance,Urine Turbid (Clear); Bacteria,Urine Many /hpf; Bilirubin,Urine Negative (Negative); Blood,Urine Small (Negative); Color,Urine Red; Glucose,Urine (UA) Negative (Negative); Ketones,Urine Negative (Negative); Leukocyte Esterase,Urine Large (Negative); Mucus,Urine Many /hpf; Nitrite,Urine Negative (Negative); PH, Urine 8.5 (5.0-8.0); Protein,Urine 1+ (Negative); RBC,Urine 15 /hpf (0-5); Specific Gravity,Urine 1.013 (1.001-1.035); WBC,Urine 20 /hpf (0-5)
--- NOTE | 2023-12-10 17:12 | CA ---
Transthoracic Echo Report Name: Tucker Cook Age: 67 Gender: M : 1955 Exam Date: 12/10/2023 14:46 Exam Location: [place] [facility] Ht (in): 64 Wt (lb): 123 Ordering Physician: Gentry Clayton MD Attending/Referring Phys: Budget Accountant Mackenzie Haas RDCS Procedure CPT: Indications: lvfunction Cardiac Hx: Technical Quality: Fair Contrast 1: Total Dose (mL): Contrast 2: Total Dose (mL): MEASUREMENTS (Male / Female) Normal Values 2D ECHO LV Diastolic Diameter PLAX 3.5 cm 4.2 - 5.9 / 3.9 - 5.3 cm LV Systolic Diameter PLAX 2.7 cm IVS Diastolic Thickness 1.1 cm 0.6 - 1.0 / 0.6 - 0.9 cm LVPW Diastolic Thickness 1.1 cm 0.6 - 1.0 / 0.6 - 0.9 cm LV Relative Wall Thickness 0.6 RV Internal Dim ED PLAX 2.7 cm LA Systolic Diameter LX 2.8 cm 3.0 - 4.0 / 2.7 - 3.8 cm LA Volume 23.5 cm??? 18 - 58 / 22 - 52 cm??? LA Volume Index 14.8 cm???/m??? 16 - 28 cm???/m??? M-MODE Aortic Root Diameter MM 3.4 cm AV Cusp Separation MM 2.5 cm DOPPLER AV Peak Velocity 133.6 cm/s AV Peak Gradient 7.1 mmHg AI Peak Velocity 177.0 cm/s AI Peak Gradient 12.5 mmHg AI Pressure Half Time 1441.3 ms MV Area PHT 2.9 cm??? Mitral E Point Velocity 61.0 cm/s Mitral A Point Velocity 72.9 cm/s Mitral E to A Ratio 0.8 MV Deceleration Time 265.7 ms TR Peak Velocity 203.5 cm/s TR Peak Gradient 16.6 mmHg Right Ventricular Systolic Press 31.6 mmHg FINDINGS Left Ventricle Left ventricular ejection fraction is estimated at 55-60 %. Small left ventricular cavity. Left ventricular cavity size normal. Normal left ventricular wall motion. Right Ventricle Normal right ventricular size and function. Right ventricular systolic pressure within normal limits. Right Atrium Normal right atrial size. No right atrial thrombus or mass seen. Left Atrium Normal left atrial size. No left atrial thrombus or mass present. Mitral Valve Structurally normal mitral valve. No mitral stenosis, regurgitation or prolapse. Aortic Valve Trileaflet aortic valve. [id number] aortic regurgitation. Tricuspid Valve Structurally normal tricuspid valve. Trace to mild tricuspid regurgitation. Pulmonic Valve Pulmonic valve not well visualized. No pulmonic regurgitation. Pericardium No pericardial or pleural effusion. Aorta Normal size aortic root and proximal ascending aorta. CONCLUSIONS Normal LV function Mild to moderate aortic regurgitation Previewed by: Dr. Rc Daniels MD (Electronically Signed) Final Date: 10 December 2023 17:11
[2023-12-11 08:27] LABS: HCT 32.5 % (39.6-50.0); HGB 11.6 g/dL (13.0-17.0); MCH 33.1 pg (27.0-32.0); MCHC 35.7 g/dL (32.0-37.0); MCV 92.9 FL (80.0-97.0); Mean Platelet Volume 9.6 FL (9.5-12.2); NRBC Per 100 WBC 0 X 10*3/uL (0.00-0.01); Platelet Count 190 X 10*3/uL (140-440); RDW 12.9 % (11.5-14.5); WBC 6.97 X 10*3/uL (4.50-10.00)
[2023-12-11 08:44] LABS: ALT 48 U/L (10-49); AST 61 U/L (14-35); Albumin 3.4 g/dL (3.8-4.9); Albumin/Globulin Ratio 1.62 Ratio (1.60-3.17); Alkaline Phosphatase 56 U/L (41-126); BUN/Creat Ratio 49.86 Ratio (12.00-20.00); Blood Urea Nitrogen 34.9 mg/dL (9.0-27.0); Calcium 7.9 mg/dL (8.7-10.3); Carbon Dioxide 20.1 mmol/L (21.6-31.8); Chloride 111 mmol/L (96-109); Creatine Kinase 975 U/L (35-257); Globulin 2.1 g/dL (1.6-3.3); Glucose 108 mg/dL (70-110); Potassium 3.2 mmol/L (3.5-5.5); Sodium 142 mmol/L (135-145); Total Bilirubin 0.5 mg/dL (0.3-1.2); Total Protein 5.5 g/dL (6.2-8.2)
--- NOTE | 2023-12-11 09:37 | P.PN ---
Subjective Patient seen at bedside. No significant overnight events. Nephrology consulted for acute rhabdomyolysis. Serum creatinine improved from 0.86-0.7 today. Serum CK improved from 2307-975 today. Objective - Vital Signs Vital signs: Vital Signs Temp 97.9 F 12/11/23 07:03 Pulse 92 12/11/23 07:03 Resp 16 12/11/23 07:03 BP 125/72 12/11/23 07:03 Pulse Ox 96 12/11/23 07:03 FiO2 Intake & Output 12/10/23 12/11/23 12/11/23 18:59 06:59 18:59 Weight 55.792 kg Other: Voiding Method Bedside Commode # Voids 2 # Bowel Movements 2 - Exam Vital signs are stable. General: No acute distress. HEENT: Head exam is unremarkable. LUNGS: No audible rhonchi or wheezes. HEART: Rate and Rhythm are regular. ABDOMEN: Nontender. EXTREMITITES: No clubbing, cyanosis, or edema. - Labs CBC & Chem 7: 12/11/23 03:30 12/11/23 03:30 Labs: Abnormal Lab Results - Last 24 Hours (Table) 12/10/23 12/11/23 12/11/23 Range/Units 14:53 03:30 03:30 RBC 3.50 L (4.40-5.60) X 10*6/uL Hgb 11.6 L (13.0-17.0) g/dL Hct 32.5 L (39.6-50.0) % MCH 33.1 H (27.0-32.0) pg Potassium 3.2 L (3.5-5.5) mmol/L Chloride 111 H (96-109) mmol/L Carbon Dioxide 20.1 L (21.6-31.8) mmol/L BUN 34.9 H (9.0-27.0) mg/dL BUN/Creatinine Ratio 49.86 H (12.00-20.00) Ratio Calcium 7.9 L (8.7-10.3) mg/dL AST 61 H (14-35) U/L Creatine Kinase 975 H (35-257) U/L Total Protein 5.5 L (6.2-8.2) g/dL Albumin 3.4 L (3.8-4.9) g/dL Urine pH 8.5 H (5.0-8.0) Urine Protein 1+ H (Negative) Urine Blood Small H (Negative) Ur Leukocyte Esterase Large H (Negative) Urine RBC 15 H (0-5) /hpf Urine WBC 20 H (0-5) /hpf Urine Bacteria Many H (None) /hpf Urine Mucus Many H (None) /hpf Assessment and Plan Assessment: 1. Mild acute kidney injury secondary to vasomotor nephropathy. Improved. Creatinine 0.7 today. 2. Rhabdomyolysis secondary to fall and immobility. CK level continues to trend down, yesterday was 2307 and today is 975. Improved. 3. Hypernatremia from lack of oral water intake. It was 146 yesterday and today is 142. Improved. 4. Metabolic acidosis secondary to IV fluids. Improved. Plan: Discontinue bicarb drip and start NS 0.9% at 75 cc/h Continue oral bicarbonate 650 mg p.o. twice daily Repeat CK, BMP, magnesium, and CBC in the morning Encouraged oral intake. Avoid nephrotoxins. I have seen and examined the patient with resident and agree with A&P as written.
--- NOTE | 2023-12-11 11:51 | P.PN ---
Subjective HISTORY OF PRESENT ILLNESS: This is a 67-year-old male with a past medical history significant for DVT. 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 We have been asked to see the patient in consultation for elevated troponin. Patient examined at the bedside in the emergency room. Patient presented to the hospital after sustaining a fall at home. Patient was apparently laying on the floor for about 12 hours. He does report that he fell twice this weekend. He is unsure why he is falling but does report feeling generally weak. Patient denies any chest pain or pressure. He denies any shortness of breath. DIAGNOSTICS: - EKG reveals sinus mechanism with no signs of acute ischemia - Chest xray COPD changes. Negative for acute process.. - Laboratory data: WBC 8.1. Hemoglobin 13.1. Platelet count 217. Sodium 146. Potassium 3.6. BUN 58. Creatinine 0.86. Creatinine kinase 3959. Troponin 0.070. 0.053. - Current home cardiac medications include Eliquis 5 mg twice a day 12/11/2023 Patient examined this morning at the bedside. Patient denies chest pain or pressure. He denies shortness of breath. Vital signs are stable. Ec hocardiogram completed revealing ejection fraction 55 to 60% with mild to moderate aortic regurgitation, trace to mild tricuspid regurgitation. Creatinine kinase improving. Down to 975 today. PHYSICAL EXAM: VITAL SIGNS: Reviewed. GENERAL: Well-developed in no acute distress. HEENT: Head is normocephalic. Pupils are equal, round. Sclerae anicteric. Mucous membranes of the mouth are moist. Neck supple. No JVD or thyromegaly LUNGS: Respirations even and unlabored. Lungs essentially clear to auscultation bilaterally. HEART: Regular rate and rhythm. S1 and S2 heard. ABDOMEN: Soft. Nondistended. Nontender. EXTREMITIES: Normal range of motion. No clubbing or cyanosis. Peripheral pulses intact. No lower extremity edema NEUROLOGIC: Awake and alert. Oriented x 3. ASSESSMENT: Status post mechanical fall Acute rhabdomyolysis Mild hypernatremia Mildly elevated LFTs Elevated troponins, type II [place], secondary to above, no evidence of acute coronary syndrome History of lower extremity DVT on Eliquis outpatient PLAN: An acute coronary event has been ruled out Continue current cardiac medications Patient is currently stable from a cardiac perspective Plan for outpatient Raiza scan with Dr. Daniels We will sign off. Please reconsult if needed. Nurse practitioner note has been reviewed by physician. Signing provider agrees with the documented findings, assessment, and plan of care documented by MICA MACHINE OPERATOR as a scribe. Objective - Vital Signs Vital signs: Vital Signs Temp 97.9 F 12/11/23 07:03 Pulse 92 12/11/23 07:03 Resp 16 12/11/23 07:03 BP 125/72 12/11/23 07:03 Pulse Ox 96 12/11/23 07:03 FiO2 Intake & Output 12/10/23 12/11/23 12/11/23 18:59 06:59 18:59 Weight 55.792 kg Other: Voiding Method Bedside Commode # Voids 2 # Bowel Movements 2 - Labs CBC & Chem 7: 12/11/23 03:30 12/11/23 03:30 Labs: Abnormal Lab Results - Last 24 Hours (Table) 12/10/23 12/11/23 12/11/23 Range/Units 14:53 03:30 03:30 RBC 3.50 L (4.40-5.60) X 10*6/uL Hgb 11.6 L (13.0-17.0) g/dL Hct 32.5 L (39.6-50.0) % MCH 33.1 H (27.0-32.0) pg Potassium 3.2 L (3.5-5.5) mmol/L Chloride 111 H (96-109) mmol/L Carbon Dioxide 20.1 L (21.6-31.8) mmol/L BUN 34.9 H (9.0-27.0) mg/dL BUN/Creatinine Ratio 49.86 H (12.00-20.00) Ratio Calcium 7.9 L (8.7-10.3) mg/dL AST 61 H (14-35) U/L Creatine Kinase 975 H (35-257) U/L Total Protein 5.5 L (6.2-8.2) g/dL Albumin 3.4 L (3.8-4.9) g/dL Urine pH 8.5 H (5.0-8.0) Urine Protein 1+ H (Negative) Urine Blood Small H (Negative) Ur Leukocyte Esterase Large H (Negative) Urine RBC 15 H (0-5) /hpf Urine WBC 20 H (0-5) /hpf Urine Bacteria Many H (None) /hpf Urine Mucus Many H (None) /hpf
[2023-12-11] MEDS ORDERED: Potassium Replacement Protocol 1 EACH MISC MISCELLANE PRN ×2 (12:10→19:17)
[2023-12-11] MEDS: SODIUM CHLORIDE 0.9% 1,000 ML IV SCH (14:22)
[2023-12-11] MEDS: POTASSIUM CHLORIDE ER 20 MEQ TAB.ER PO SCH ×2 (14:22→21:27)
--- NOTE | 2023-12-11 23:33 | P.PN ---
Subjective Progress Note Date: 12/11/23 HISTORY OF PRESENT ILLNESS: 67-year-old With active medical history of DVT of the right leg still on anticoagulation, bladder deformity since , chronic pain syndrome, chronic degenerative disc disease, chronic arthritis with trauma to the hip specially the right side and had severe abnormal balance and gait is ambulating with walker most of the time does not use it has multiple fall and trauma related to. He fell apparently 2 days ago and was on the floor for more than half the day before his landlord found him and helped him out into the bed also he fell 1 more time yesterday and hit his head and right elbow and hip but he was able to ambulate has more injury and bruises all over his body from fall. Patient's sister seen him on 12/09/2023 and decided to bring him to the emergency department at [facility] where was seen and evaluated. At the time he looks very dehydrated with slightly bit low blood pressure decreased urine output. Workup with blood work shows bun of 74 with creatinine 1.03 with severe prerenal acute kidney injury found to have transaminitis with abnormal liver function test AST to ALT is 2-1 also CK was 3957 with troponin at 0.07. Patient was started hydration will admit patient to the hospital consult cardiology for elevated troponin repeat troponin a few hours also will consult nephrology for acute kidney injury and continue hydration for now. 12/11/2023: Rhabdomyolysis has improved quite. Last 24 hours with CK is down to 975, creatinine has improved significantly and back to his baseline with GFR is up to 100. Hemoglobin surprisingly dropped to 11.6 most likely dilution from hydration over the last 36 hours. Meanwhile continue current management still having significant hypokalemia on replacement therapy which we will continue potassium chloride either IV or p.o. to keep up with potassium being low. UA surprisingly showed large leukocyte Estrace with many bacteria many mucus but specimen is not a clean because of the genitalia deformity patient has this is mixed with feces makes the sample was not possible the only way to collect accurate sample by doing straight cath which is again for the type of deformity he has on the orifice of his ureter is not possible. Will leave the decision up to nephrology whether needed or not in the meanwhile patient is not showing any sign and symptom of UTI. Showing significant sign of generalized fatigue tiredness and debility will require him probably to require some help with PT OT and eventually probably the idea of short-term rehab and placement if needed. REVIEW OF SYSTEMS: CONSTITUTIONAL: Very thin malnourished does not look in any respiratory distress. EYES: No icterus sclerae, no conjunctivitis. EARS, NOSE, MOUTH, THROAT, and FACE: No sore throat, lymphadenopathy, carotid bruits or deformity. RESPIRATORY: No SOB cough or wheezes. CARDIOVASCULAR: No CP, Palpitation, PND, Orthopnea, or angina. GASTROINTESTINAL: No Abd pain, Nausea or vomiting, no Diarrhea or constipation, No GI Bleed, no distention or masses. GENITOURINARY: Negative for Hematuria or UTI, no kidney stones. INTEGUMENT/BREAST: Negative for any muscular injury with mild osteoarthritis.. HEMATOLOGIC/LYMPHATIC: Negative for bleed or purpura. MUSCULOSKELTAL: Multiple bruises over the finding of his body mostly right elbow and hip area. NEURLOGICAL: No LOC, Sz or syncope, blurred vision dizziness or abnormality.. BEHAVIORAL/PSYCH: Negative. ENDOCRINE: Negative. PHYSICAL EXAMINATION: General Appearance: Alert, cooperative, no distress, appears stated age. Neck HEENT: Supple, no lymphadenopathy, no thyroid enlargement, no carotid bruits. Lungs: Clear to auscultation without crackles or wheezes no rhonchi, no d eformity. Chest Wall: Chest wall normal expansion with deep inspiration no tenderness and no deformity was found on exam, no costochondral pain or discomfort. Heart: Regular rate and rhythm, S1, S2 normal, no murmur, rub or gallop. Back: Scoliosis mild tenderness in the lower lumbar area with mild bruise. Abdomen: Soft, non-tender, bowel sounds active all four quadrants, no masses, no organomegaly. Extremities: Right elbow and knee has slight bit of bruise decreased with positive pulse dorsalis pedis bilaterally. Skin: Skin color, texture, tugor normal, no rashes or lesions. Neurologic: Alert oriented x3 cranial nerves II through XII intact, no motor deficit, no abnormal balance or gait. ASSESSMENT AND PLAN: _Acute rhabdomyolysis: Much better so far with CK is down not causing any worsening kidney function will continue hydration keep watching kidney function on more regular basis. _Elevated troponin: With possible type II myocardial infarction from the sev erity of his rhabdomyolysis: Repeat EKG and consult cardiology repeat troponin again this morning. No further change in troponin patient's clear from cardiology standpoint. _Acute kidney injury: Mostly prerenal and mostly from severe dehydration and rhabdomyolysis continue hydration consult nephrology repeat CMP again this morning. Kidney function is back to normal with GFR of 100 continue hydration still. _Hypokalemia: With potassium is down to 3.2 continue replacement therapy with potassium chloride IV and p.o. _Mild anemia with over 1 g drop in hemoglobin most likely dilution from hydr ation which is pseudo anemia at this point no need to watch for any bleeding. _History of deep venous thrombosis: Continue anticoagulation with Eliquis. _Recurrent bladder infection and urinary deformity: Had recurrent infection in the past has been doing slightly better no UTI lately urine sample was not totally clean not been able to make a decision and reliable idea whether this is UTI or not. _Transaminitis: Not clear whether this is an alcoholism or not specially with the AST to ALT 2/ the patient has nonalcoholic and this is most likely the effect of hepatorenal syndrome from the severity of dehydration expect kidney function to improve probably the liver enzyme to improve shortly after. _GI prophylaxis: Will start Pepcid 20 mg daily. _Debility: Continue PT OT and prepare hopefully for rehab. Discussion: Patient rhabdomyolysis much better he has improved significantly titrate physical therapy and activity and prepare hopefully for discharge to [facility]. Testing: Echocardiogram report with ejection fraction of 55-60 percentile with mild to moderate aortic regurgitation no mitral stenosis regurgitation or prolapse was found and overall the size and contractility of the heart muscle is good. Ultrasound of the abdomen no gallstone and obscured spleen by bowel gas with normal right and left kidney liver is hematogenous the intrahepatic portion of the IVC and proximal abdominal aorta are within normal limit there is no evidence of cholelithiasis, common duct is unremarkable visualized of the pancreas are homogeneous and spleen is unremarkable as well. In the meanwhile as expected with liver function test the planned back to be almost normal. Objective - Vital Signs Vital signs: Vital Signs Temp 98.2 F 12/11/23 01:45 Pulse 60 12/11/23 01:45 Resp 16 12/11/23 01:45 BP 119/79 12/11/23 01:45 Pulse Ox 98 12/11/23 01:45 FiO2 Intake & Output 12/10/23 12/10/23 12/11/23 06:59 18:59 06:59 Weight 55.792 kg 55.792 kg Other: # Voids 2 # Bowel Movements 2 - Labs CBC & Chem 7: 12/11/23 03:30 12/11/23 18:32 Labs: Abnormal Lab Results - Last 24 Hours (Table) 12/10/23 12/10/23 12/10/23 Range/Units 06:40 06:40 06:40 RBC 3.79 L (4.30-5.90) m/uL Hct 37.2 L (39.0-53.0) % Sodium 146 H (137-145) mmol/L Chloride 121 H (98-107) mmol/L Carbon Dioxide 15 L (22-30) mmol/L BUN 58 H (9-20) mg/dL AST 85 H (17-59) U/L Creatine Kinase 2307 H* (55-170) U/L Troponin I 0.053 H* (0.000-0.034) ng/mL Total Protein 6.0 L (6.3-8.2) g/dL Albumin 3.4 L (3.5-5.0) g/dL Urine pH (5.0-8.0) Urine Protein (Negative) Urine Blood (Negative) Ur Leukocyte Esterase (Negative) Urine RBC (0-5) /hpf Urine WBC (0-5) /hpf Urine Bacteria (None) /hpf Urine Mucus (None) /hpf 12/10/23 Range/Units 14:53 RBC (4.30-5.90) m/uL Hct (39.0-53.0) % Sodium (137-145) mmol/L Chloride (98-107) mmol/L Carbon Dioxide (22-30) mmol/L BUN (9-20) mg/dL AST (17-59) U/L Creatine Kinase (55-170) U/L Troponin I (0.000-0.034) ng/mL Total Protein (6.3-8.2) g/dL Albumin (3.5-5.0) g/dL Urine pH 8.5 H (5.0-8.0) Urine Protein 1+ H (Negative) Urine Blood Small H (Negative) Ur Leukocyte Esterase Large H (Negative) Urine RBC 15 H (0-5) /hpf Urine WBC 20 H (0-5) /hpf Urine Bacteria Many H (None) /hpf Urine Mucus Many H (None) /hpf
[2023-12-12 08:46] LABS: HCT 36.6 % (39.6-50.0); HGB 12.5 g/dL (13.0-17.0); MCH 33.2 pg (27.0-32.0); MCHC 34.2 g/dL (32.0-37.0); MCV 97.1 FL (80.0-97.0); Mean Platelet Volume 9.3 FL (9.5-12.2); NRBC Per 100 WBC 0 X 10*3/uL (0.00-0.01); Platelet Count 196 X 10*3/uL (140-440); RBC 3.77 X 10*6/uL (4.40-5.60); WBC 6.65 X 10*3/uL (4.50-10.00)
[2023-12-12 09:04] LABS: Calcium 8.5 mg/dL (8.7-10.3); Carbon Dioxide 19.6 mmol/L (21.6-31.8); Chloride 116 mmol/L (96-109); Glucose 89 mg/dL (70-110); Potassium 3.9 mmol/L (3.5-5.5); Sodium 146 mmol/L (135-145)
--- NOTE | 2023-12-12 09:38 | P.PN ---
Subjective Patient seen at bedside. No significant overnight events. Nephrology consulted for acute rhabdomyolysis. Serum creatinine increased from 0.7 to 0.8 today, close to baseline. Objective - Vital Signs Vital signs: Vital Signs Temp 98 F 12/12/23 06:39 Pulse 65 12/12/23 06:39 Resp 16 12/12/23 06:39 BP 103/66 12/12/23 06:39 Pulse Ox 98 12/12/23 06:39 FiO2 Intake & Output 12/11/23 12/12/23 12/12/23 18:59 06:59 18:59 Intake Total 1320 240 Output Total 7 Balance 1313 240 Intake: Oral 1320 240 Output: Urine/Stool Mix 7 Other: Voiding Method Bedside Commode Bedside Commode # Voids 3 - Exam Vital signs are stable. General: No acute distress. HEENT: Head exam is unremarkable. LUNGS: No audible rhonchi or wheezes. HEART: Rate and Rhythm are regular. ABDOMEN: Nontender. EXTREMITITES: No clubbing, cyanosis, or edema. - Labs CBC & Chem 7: 12/12/23 05:13 12/12/23 05:13 Labs: Abnormal Lab Results - Last 24 Hours (Table) 12/11/23 12/12/23 12/12/23 Range/Units 18:32 05:13 05:13 RBC 3.77 L (4.40-5.60) X 10*6/uL Hgb 12.5 L (13.0-17.0) g/dL Hct 36.6 L (39.6-50.0) % MCV 97.1 H (80.0-97.0) FL MCH 33.2 H (27.0-32.0) pg MPV 9.3 L (9.5-12.2) FL Sodium 146 H (135-145) mmol/L Potassium 3.3 L (3.5-5.1) mmol/L Chloride 116 H (96-109) mmol/L Carbon Dioxide 19.6 L (21.6-31.8) mmol/L BUN/Creatinine Ratio 30.00 H (12.00-20.00) Ratio Calcium 8.5 L (8.7-10.3) mg/dL Assessment and Plan Assessment: 1. Mild acute kidney injury secondary to vasomotor nephropathy. Creatinine 0.8 today. 2. Rhabdomyolysis secondary to fall and immobility. CK level continues to tren d down, yesterday was 975 and today is 487. Improved. 3. Hypernatremia from inadequate oral water intake. Sodium increased from 142 to 146 today. 4. Metabolic acidosis secondary to IV fluids. Plan: Change fluids to 0.45 saline 75 cc/HR Continue oral bicarb 650 mg p.o. twice daily CK continues to decrease significantly, now 487. Encourage oral intake. Avoid nephrotoxins. I have seen and examined the patient with resident and agree with A&P as written. Encouraged increase free water intake.
[2023-12-12 09:47] LABS: Creatine Kinase 487 U/L (35-257)
[2023-12-12] MEDS: ZINC OXIDE PASTE (Z-GUARD) 1 APPLIC TOPICAL PRN (10:06)
[2023-12-12] MEDS: SODIUM CHLORIDE 0.45% 1,000 ML IV SCH (12:56)
--- NOTE | 2023-12-12 13:08 | P.PN ---
Subjective Progress Note Date: 12/12/23 HISTORY OF PRESENT ILLNESS: 67-year-old With active medical history of DVT of the right leg still on anticoagulation, bladder deformity since , chronic pain syndrome, chronic degenerative disc disease, chronic arthritis with trauma to the hip specially the right side and had severe abnormal balance and gait is ambulating with walker most of the time does not use it has multiple fall and trauma related to. He fell apparently 2 days ago and was on the floor for more than half the day before his landlord found him and helped him out into the bed also he fell 1 more time yesterday and hit his head and right elbow and hip but he was able to ambulate has more injury and bruises all over his body from fall. Patient's sister seen him on 12/09/2023 and decided to bring him to the emergency department at [facility] where was seen and evaluated. At the time he looks very dehydrated with slightly bit low blood pressure decreased urine output. Workup with blood work shows bun of 74 with creatinine 1.03 with severe prerenal acute kidney injury found to have transaminitis with abnormal liver function test AST to ALT is 2-1 also CK was 3957 with troponin at 0.07. Patient was started hydration will admit patient to the hospital consult cardiology for elevated troponin repeat troponin a few hours also will consult nephrology for acute kidney injury and continue hydration for now. 12/11/2023: Rhabdomyolysis has improved quite. Last 24 hours with CK is down to 975, creatinine has improved significantly and back to his baseline with GFR is up to 100. Hemoglobin surprisingly dropped to 11.6 most likely dilution from hydration over the last 36 hours. Meanwhile continue current management still having significant hypokalemia on replacement therapy which we will continue potassium chloride either IV or p.o. to keep up with potassium being low. UA surprisingly showed large leukocyte Estrace with many bacteria many mucus but specimen is not a clean because of the genitalia deformity patient has this is mixed with feces makes the sample was not possible the only way to collect accurate sample by doing straight cath which is again for the type of deformity he has on the orifice of his ureter is not possible. Will leave the decision up to nephrology whether needed or not in the meanwhile patient is not showing any sign and symptom of UTI. Showing significant sign of generalized fatigue tiredness and debility will require him probably to require some help with PT OT and eventually probably the idea of short-term rehab and placement if needed. 12/12/2023: Is doing much better mobility still significantly decreased, he beco me slightly bit dehydrated on the last 24 hours with sodium is up to 146, hemoglobin improved since yesterday up to 12.5, CK is down to 487 with kidney function is much better creatinine still at 0.8 with GFR of 96. Still working with the social insurance specialist along with physical therapy for potential getting patient to subacute rehab for the next week to 2 weeks to do physical therapy to get her his independency. Meanwhile he continue complaining of severe right knee pain he might require total knee replacement in the future also he had severe torn rotator cuff of the left side and severe carpal tunnel on the right side make his mobility despite using the walker still more problem. REVIEW OF SYSTEMS: CONSTITUTIONAL: Very thin malnourished does not look in any respiratory distress. EYES: No icterus sclerae, no conjunctivitis. EARS, NOSE, MOUTH, THROAT, and FACE: No sore throat, lymphadenopathy, carotid bruits or deformity. RESPIRATORY: No SOB cough or wheezes. CARDIOVASCULAR: No CP, Palpitation, PND, Orthopnea, or angina. GASTROINTESTINAL: No Abd pain, Nausea or vomiting, no Diarrhea or constipation, No GI Bleed, no distention or masses. GENITOURINARY: Negative for Hematuria or UTI, no kidney stones. INTEGUMENT/BREAST: Negative for any muscular injury with mild osteoarthritis.. HEMATOLOGIC/LYMPHATIC: Negative for bleed or purpura. MUSCULOSKELTAL: Multiple bruises over the finding of his body mostly right elbow and hip area. NEURLOGICAL: No LOC, Sz or syncope, blurred vision dizziness or abnormality.. BEHAVIORAL/PSYCH: Negative. ENDOCRINE: Negative. PHYSICAL EXAMINATION: General Appearance: Alert, cooperative, no distress, appears stated age. Neck HEENT: Supple, no lymphadenopathy, no thyroid enlargement, no carotid bruits. Lungs: Clear to auscultation without crackles or wheezes no rhonchi, no deformity. Chest Wall: Chest wall normal expansion with deep inspiration no tenderness and no deformity was found on exam, no costochondral pain or discomfort. Heart: Regular rate and rhythm, S1, S2 normal, no murmur, rub or gallop. Back: Scoliosis mild tenderness in the lower lumbar area with mild bruise. Abdomen: Soft, non-tender, bowel sounds active all four quadrants, no masses, no organomegaly. Extremities: Right elbow and knee has slight bit of bruise decreased with positive pulse dorsalis pedis bilaterally. Skin: Skin color, texture, tugor normal, no rashes or lesions. Neurologic: Alert oriented x3 cranial nerves II through XII intact, no motor deficit, no abnormal balance or gait. ASSESSMENT AND PLAN: _Acute rhabdomyolysis: Much better so far with CK is down not causing any worsening kidney function will continue hydration keep watching kidney function on more regular basis. CK continued to decline and kidney function is much better so far. _Elevated troponin: With possible type II myocardial infarction from the severity of his rhabdomyolysis: Repeat EKG and consult cardiology repeat troponin again this morning. No further change in troponin patient's clear from cardiology standpoint. Echocardiogram report with ejection fraction of 55-60 percentile with mild to moderate aortic regurgitation no mitral stenosis regurgitation or prolapse was found and overall the size and contractility of the heart muscle is good. _Acute kidney injury: Much better GFR at 90 continue hydration. _Hypokalemia: Potassium supplement potassium is back to normal at this point. _Hyponatremia: Most likely secondary to dehydration with a challenge of the IV fluid nephrology changes IV from 0.9-0.45 which probably will help to increase his free water and should probably take care of the sodium level. _Metabolic acidosis: Continue sodium bicarbonate has been doing much better so far. _Mild anemia with over 1 g drop in hemoglobin most likely dilution from hydration which is pseudo anemia at this point no need to watch for any bleeding. _History of deep venous thrombosis: Continue anticoagulation with Eliquis. _Recurrent bladder infection and urinary deformity: Had recurrent infection in the past has been doing slightly better no UTI lately urine sample was not totally clean not been able to make a decision and reliable idea whether this is UTI or not. _Transaminitis: Not clear whether this is an alcoholism or not specially with the AST to ALT 2/1 the patient has nonalcoholic and this is most likely the effect of hepatorenal syndrome from the severity of dehydration expect kidney function to improve probably the liver enzyme to improve shortly after. Ul trasound of the abdomen no gallstone and obscured spleen by bowel gas with normal right and left kidney liver is hematogenous the intrahepatic portion of the IVC and proximal abdominal aorta are within normal limit there is no evidence of cholelithiasis, common duct is unremarkable visualized of the pancreas are homogeneous and spleen is unremarkable as well. In the meanwhile as expected with liver function test the planned back to be almost normal. _GI prophylaxis: Will start Pepcid 20 mg daily. _Debility: Continue PT OT and prepare hopefully for rehab. Discussion: Patient rhabdomyolysis much better he has improved significantly titrate physical therapy and activity and prepare hopefully for discharge to [facility]. Objective - Vital Signs Vital signs: Vital Signs Temp 98 F 12/12/23 06:39 Pulse 65 12/12/23 06:39 Resp 16 12/12/23 06:39 BP 103/66 12/12/23 06:39 Pulse Ox 98 12/12/23 06:39 FiO2 Intake & Output 12/11/23 12/12/23 12/12/23 18:59 06:59 18:59 Intake Total 1320 Output Total 7 Balance 1313 Intake: Oral 1320 Output: Urine/Stool Mix 7 Other: Voiding Method Bedside Commode Bedside Commode # Voids 3 - Labs CBC & Chem 7: 12/12/23 05:13 12/12/23 05:13 Labs: Abnormal Lab Results - Last 24 Hours (Table) 12/11/23 12/11/23 12/11/23 Range/Units 03:30 03:30 18:32 RBC 3.50 L (4.40-5.60) X 10*6/uL Hgb 11.6 L (13.0-17.0) g/dL Hct 32.5 L (39.6-50.0) % MCH 33.1 H (27.0-32.0) pg Potassium 3.2 L 3.3 L (3.5-5.5) mmol/L Chloride 111 H (96-109) mmol/L Carbon Dioxide 20.1 L (21.6-31.8) mmol/L BUN 34.9 H (9.0-27.0) mg/dL BUN/Creatinine Ratio 49.86 H (12.00-20.00) Ratio Calcium 7.9 L (8.7-10.3) mg/dL AST 61 H (14-35) U/L Creatine Kinase 975 H (35-257) U/L Total Protein 5.5 L (6.2-8.2) g/dL Albumin 3.4 L (3.8-4.9) g/dL
[2023-12-12] MEDS: HYDROcodone/APAP 5-325MG 1 EACH TAB PO PRN (22:36)
[2023-12-13 08:44] LABS: BUN/Creat Ratio 25.43 Ratio (12.00-20.00); Blood Urea Nitrogen 17.8 mg/dL (9.0-27.0); Calcium 8.3 mg/dL (8.7-10.3); Carbon Dioxide 18.4 mmol/L (21.6-31.8); Chloride 116 mmol/L (96-109); Glucose 105 mg/dL (70-110); Magnesium 1.8 mg/dL (1.5-2.4); Potassium 3.9 mmol/L (3.5-5.5); Sodium 143 mmol/L (135-145)
[2023-12-13 09:18] LABS: Creatine Kinase 242 U/L (35-257)
--- NOTE | 2023-12-13 11:17 | P.DS ---
Providers Date of admission: 12/09/23 21:50 Attending physician: Gentry Clayton Consults: 12/09/23 22:18 Consult Physician Urgent Consulting Provider: Jaja Kelly Consult Reason/Comments: acute rhabdomyolysis Do you want consulting provider notified?: Yes Primary care physician: Gentry Clayton [facility] Course: HISTORY OF PRESENT ILLNESS: 67-year-old With active medical history of DVT of the right leg still on anticoagulation, bladder deformity since , chronic pain syndrome, chronic degenerative disc disease, chronic arthritis with trauma to the hip specially the right side and had severe abnormal balance and gait is ambulating with walker most of the time does not use it has multiple fall and trauma related to. He fell apparently 2 days ago and was on the floor for more than half the day before his landlord found him and helped him out into the bed also he fell 1 more time yesterday and hit his head and right elbow and hip but he was able to ambulate has more injury and bruises all over his body from fall. Patient's sister seen him on 12/09/2023 and decided to bring him to the emergency department at [facility] where was seen and evaluated. At the time he looks very dehydrated with slightly bit low blood pressure decreased urine output. Workup with blood work shows bun of 74 with creatinine 1.03 with severe prerenal acute kidney injury found to have transaminitis with abnormal liver function test AST to ALT is 2-1 also CK was 3957 with troponin at 0.07. Patient was started hydration will admit patient to the hospital consult cardiology for elevated troponin repeat troponin a few hours also will consult nephrology for acute kidney injury and continue hydration for now. 12/11/2023: Rhabdomyolysis has improved quite. Last 24 hours with CK is down to 975, creatinine has improved significantly and back to his baseline with GFR is up to 100. Hemoglobin surprisingly dropped to 11.6 most likely dilution from hydration over the last 36 hours. Meanwhile continue current management still having significant hypokalemia on replacement therapy which we will continue potassium chloride either IV or p.o. to keep up with potassium being low. UA surprisingly showed large leukocyte Estrace with many bacteria many mucus but specimen is not a clean because of the genitalia deformity patient has this is mixed with feces makes the sample was not possible the only way to collect accurate sample by doing straight cath which is again for the type of deformity he has on the orifice of his ureter is not possible. Will leave the decision up to nephrology whether needed or not in the meanwhile patient is not showing any sign and symptom of UTI. Showing significant sign of generalized fatigue tiredness and debility will require him probably to require some help with PT OT and eventually probably the idea of short-term rehab and placement if needed. 12/12/2023: Is doing much better mobility still significantly decreased, he become slightly bit dehydrated on the last 24 hours with sodium is up to 146, hemoglobin improved since yesterday up to 12.5, CK is down to 487 with kidney function is much better creatinine still at 0.8 with GFR of 96. Still working with the home health care social worker along with physical therapy for potential getting patient to subacute rehab for the next week to 2 weeks to do physical therapy to get her his independency. Meanwhile he continue complaining of severe right knee pain he might require total knee replacement in the future also he had severe torn rotator cuff of the left side and severe carpal tunnel on the right side make his mobility despite using the walker still more problem. 12/13/2023: He is doing much better today was able to participate in physical therapy, able to walk some compared to before. harvest worker had to work with him to preauthorize his admission to a residential rehab where I believe patient should be for the next 2 weeks and furthermore probably require longer term placement our backup plan with his family if he moved in with his sister or have help around he should not be living alone anymore specially with the severity of the arthritis ongoing with his right hip, left knee and right wrist make a lot of fall and trauma is extremely high and make him not safe being by himself. REVIEW OF SYSTEMS: CONSTITUTIONAL: Very thin malnourished does not look in any respiratory distress. EYES: No icterus sclerae, no conjunctivitis. EARS, NOSE, MOUTH, THROAT, and FACE: No sore throat, lymphadenopathy, carotid bruits or deformity. RESPIRATORY: No SOB cough or wheezes. CARDIOVASCULAR: No CP, Palpitation, PND, Orthopnea, or angina. GASTROINTESTINAL: No Abd pain, Nausea or vomiting, no Diarrhea or constipation, No GI Bleed, no distention or masses. GENITOURINARY: Negative for Hematuria or UTI, no kidney stones. INTEGUMENT/BREAST: Negative for any muscular injury with mild osteoarthritis.. HEMATOLOGIC/LYMPHATIC: Negative for bleed or purpura. MUSCULOSKELTAL: Multiple bruises over the finding of his body mostly right elbow and hip area. NEURLOGICAL: No LOC, Sz or syncope, blurred vision dizziness or abnormality.. BEHAVIORAL/PSYCH: Negative. ENDOCRINE: Negative. PHYSICAL EXAMINATION: General Appearance: Alert, cooperative, no distress, appears stated age. Neck HEENT: Supple, no lymphadenopathy, no thyroid enlargement, no carotid bruits. Lungs: Clear to auscultation without crackles or wheezes no rhonchi, no deformity. Chest Wall: Chest wall normal expansion with deep inspiration no tenderness and no deformity was found on exam, no costochondral pain or discomfort. Heart: Regular rate and rhythm, S1, S2 normal, no murmur, rub or gallop. Back: Scoliosis mild tenderness in the lower lumbar area with mild bruise. Abdomen: Soft, non-tender, bowel sounds active all four quadrants, no masses, no organomegaly. Extremities: Right elbow and knee has slight bit of bruise decreased with positive pulse dorsalis pedis bilaterally. Skin: Skin color, texture, tugor normal, no rashes or lesions. Neurologic: Alert oriented x3 cranial nerves II through XII intact, no motor deficit, no abnormal balance or gait. ASSESSMENT AND PLAN: _Acute rhabdomyolysis: Much better so far with CK is down not causing any worsening kidney function will continue hydration keep watching kidney function on more regular basis. CK continued to decline and kidney function is much better so far. _Elevated troponin: With possible type II myocardial infarction from the severity of his rhabdomyolysis: Repeat EKG and consult cardiology repeat troponin again this morning. No further change in troponin patient's clear from cardiology standpoint. Echocardiogram report with ejection fraction of 55-60 percentile with mild to moderate aortic regurgitation no mitral stenosis regurgitation or prolapse was found and overall the size and contractility of th e heart muscle is good. _Acute kidney injury: Much better GFR at 90 continue hydration. _Hypokalemia: Potassium supplement potassium is back to normal at this point. _Hyponatremia: Most likely secondary to dehydration with a challenge of the IV fluid nephrology changes IV from 0.9-0.45 which probably will help to increase his free water and should probably take care of the sodium level. _Metabolic acidosis: Continue sodium bicarbonate has been doing much better so far. _Mild anemia with over 1 g drop in hemoglobin most likely dilution from hydration which is pseudo anemia at this point no need to watch for any bleeding. _History of deep venous thrombosis: Continue anticoagulation with Eliquis. _Recurrent bladder infection and urinary deformity: Had recurrent infection in the past has been doing slightly better no UTI lately urine sample was not totally clean not been able to make a decision and reliable idea whether this is UTI or not. _Transaminitis: Not clear whether this is an alcoholism or not specially with the AST to ALT 2/1 the patient has nonalcoholic and this is most likely the effect of hepatorenal syndrome from the severity of dehydration expect kidney function to improve probably the liver enzyme to improve shortly after. Ultrasound of the abdomen no gallstone and obscured spleen by bowel gas with normal right and left kidney liver is hematogenous the intrahepatic portion of the IVC and proximal abdominal aorta are within normal limit there is no evidence of cholelithiasis, common duct is unremarkable visualized of the pancreas are homogeneous and spleen is unremarkable as well. In the meanwhile as expected with liver function test the planned back to be almost normal. _GI prophylaxis: Will start Pepcid 20 mg daily. _Debility: Continue PT OT and prepare hopefully for rehab. Discussion: Patient rhabdomyolysis much better he has improved significantly titrate physical therapy and activity and prepare hopefully for discharge to residential rehab. Hospital course: Admitted to the hospital on 12/09/2023 with severe rhabdomyolysis apparently he fell at the early was on the floor for over 12 hours he continued to have significant pain and discomfort could not ambulate freely. His sister was in to see him the following day when continued to have complaint found to have bruise on his head and elbow she ended up bringing him to the emergency department [facility] at the time his CK was 3957 troponin 0.07 with creatinine was up and his liver enzymes are quite bit high. Patient was diagnosed with acute rhabdomyolysis along with acute kidney injury elevated troponin and severe transaminitis. He was admitted start hydration consult nephrology and cardiology. His CK has improved significantly troponin and cardiac testing failed to show any major abnormality. Patient potassium become slightly bit low and was replaced. With his transaminitis and up going for total abdominal ultrasound it shows mostly congested liver more than any finding consistent with gallstone or any other abnormality. His renal ultrasound did not show any obstruction. Echocardiogram showed good ejection fraction with no valvular heart disease mild to moderate aortic regurgitation only and does not have any cardiac problem require any attention at this point. The patient continue to improve with PT OT with hydration and improvement of his CK is doing much better he still not able to be independent required little bit more help patient be transferred to one of the residential rehab initially and expect probably a little bit longer term care afterward that he is doing poorly not been able to take care of himself and not been able to stay as an independent. Time spent on patient discharge was over 35 minutes. Patient Condition at Discharge: Stable Plan - Discharge Summary New Discharge Prescriptions: New Baclofen 10 mg PO AC-BID PRN #60 ml PRN Reason: Muscle Spasm Tamsulosin HCl [Flomax] 0.4 mg PO DAILY #30 capsule Sodium Bicarbonate Tab 650 mg PO BID #60 tab Acetaminophen Tab [Tylenol] 650 mg PO Q6HR PRN tab PRN Reason: Mild Pain Or Fever > 100.5 Continue Apixaban [Eliquis] 5 mg PO BID #60 tab Discharge Medication List Apixaban [Eliquis] 5 mg PO BID #60 tab 10/30/22 [Rx] Acetaminophen Tab [Tylenol] 650 mg PO Q6HR PRN tab 12/12/23 [Rx] Baclofen 10 mg PO AC-BID PRN #60 ml 12/12/23 [Rx] Sodium Bicarbonate Tab 650 mg PO BID #60 tab 12/12/23 [Rx] Tamsulosin HCl [Flomax] 0.4 mg PO DAILY #30 capsule 12/12/23 [Rx] Follow up Appointment(s)/Referral(s): Gentry Clayton MD [Primary Care Provider] - 1-2 days Rc Daniels MD [STAFF PHYSICIAN] - 1 Week Discharge Disposition: TRANSFER TO SNF/ECF
--- NOTE | 2023-12-13 11:48 | P.PN ---
Subjective Patient seen at bedside. No significant overnight events. Renal function stable. Sodium level 143 today. Oral intake fair. No vomiting or diarrhea. Objective - Vital Signs Vital signs: Vital Signs Temp 97.5 F L 12/13/23 07:35 Pulse 60 12/13/23 08:00 Resp 18 12/13/23 08:00 BP 96/58 12/13/23 07:35 Pulse Ox 97 12/13/23 07:35 FiO2 Intake & Output 12/12/23 12/13/23 12/13/23 18:59 06:59 18:59 Intake Total 2099 120 Output Total 6 Balance 2093 120 Intake: Oral 2099 120 Output: Urine/Stool Mix 6 Other: Voiding Method Bedside Commode Bedside Commode # Voids 1 - Exam Vital signs are stable. General: No acute distress. HEENT: Head exam is unremarkable. LUNGS: No audible rhonchi or wheezes. HEART: Rate and Rhythm are regular. ABDOMEN: Nontender. EXTREMITITES: No edema. - Labs CBC & Chem 7: 12/12/23 05:13 12/13/23 03:10 Labs: Abnormal Lab Results - Last 24 Hours (Table) 12/13/23 Range/Units 03:10 Chloride 116 H (96-109) mmol/L Carbon Dioxide 18.4 L (21.6-31.8) mmol/L BUN/Creatinine Ratio 25.43 H (12.00-20.00) Ratio Calcium 8.3 L (8.7-10.3) mg/dL Assessment and Plan Assessment: 1. Mild acute kidney injury secondary to vasomotor nephropathy. Resolved. 2. Rhabdomyolysis secondary to fall and immobility. CK level continues to trend down, 242 today. 3. Hypernatremia from inadequate oral water intake. Improving. Sodium level 143 today. 4. Metabolic acidosis secondary to IV fluids. On oral bicarb. Plan: Maintain half-normal saline. Encouraged oral intake, including free water. Increase frequency of bicarb to 3 times daily. Avoid nephrotoxins.
[2023-12-13 13:06] VITALS: BP 127/76; PULSE 62; RESP 17; TEMP 98.5
[2023-12-13] MEDS ORDERED: SODIUM BICARBONATE TAB 650 MG TAB PO SCH (16:00)
--- NOTE | 2023-12-14 13:01 | P.PN ---
Subjective Progress Note Date: 12/13/23 HISTORY OF PRESENT ILLNESS: 67-year-old With active medical history of DVT of the right leg still on anticoagulation, bladder deformity since , chronic pain syndrome, chronic degenerative disc disease, chronic arthritis with trauma to the hip specially the right side and had severe abnormal balance and gait is ambulating with walker most of the time does not use it has multiple fall and trauma related to. He fell apparently 2 days ago and was on the floor for more than half the day before his landlord found him and helped him out into the bed also he fell 1 more time yesterday and hit his head and right elbow and hip but he was able to ambulate has more injury and bruises all over his body from fall. Patient's sister seen him on 12/09/2023 and decided to bring him to the emergency department at [facility] where was seen and evaluated. At the time he looks very dehydrated with slightly bit low blood pressure decreased urine output. Workup with blood work shows bun of 74 with creatinine 1.03 with severe prerenal acute kidney injury found to have transaminitis with abnormal liver function test AST to ALT is 2-1 also CK was 3957 with troponin at 0.07. Patient was started hydration will admit patient to the hospital consult cardiology for elevated troponin repeat troponin a few hours also will consult nephrology for acute kidney injury and continue hydration for now. 12/11/2023: Rhabdomyolysis has improved quite. Last 24 hours with CK is down to 975, creatinine has improved significantly and back to his baseline with GFR is up to 100. Hemoglobin surprisingly dropped to 11.6 most likely dilution from hydration over the last 36 hours. Meanwhile continue current management still having significant hypokalemia on replacement therapy which we will continue potassium chloride either IV or p.o. to keep up with potassium being low. UA surprisingly showed large leukocyte Estrace with many bacteria many mucus but specimen is not a clean because of the genitalia deformity patient has this is mixed with feces makes the sample was not possible the only way to collect accurate sample by doing straight cath which is again for the type of deformity he has on the orifice of his ureter is not possible. Will leave the decision up to nephrology whether needed or not in the meanwhile patient is not showing any sign and symptom of UTI. Showing significant sign of generalized fatigue tiredness and debility will require him probably to require some help with PT OT and eventually probably the idea of short-term rehab and placement if needed. 12/12/2023: Is doing much better mobility still significantly decreased, he beco me slightly bit dehydrated on the last 24 hours with sodium is up to 146, hemoglobin improved since yesterday up to 12.5, CK is down to 487 with kidney function is much better creatinine still at 0.8 with GFR of 96. Still working with the social studies department chair along with physical therapy for potential getting patient to subacute rehab for the next week to 2 weeks to do physical therapy to get her his independency. Meanwhile he continue complaining of severe right knee pain he might require total knee replacement in the future also he had severe torn rotator cuff of the left side and severe carpal tunnel on the right side make his mobility despite using the walker still more problem. 12/13/2023: He is doing much better much better with physical therapy had improved significantly last 24 hours but still require more assistance and help specially with physical therapy, continue to complain of severe pain in the right hip the right carpal tunnel and the left knee which not able to do any intervention for. Rhabdomyolysis much better and had improved significantly and current treatment management kidney function is close to his baseline patient is not having any metabolic acidosis no hypokalemia. REVIEW OF SYSTEMS: CONSTITUTIONAL: Very thin malnourished does not look in any respiratory distress. EYES: No icterus sclerae, no conjunctivitis. EARS, NOSE, MOUTH, THROAT, and FACE: No sore throat, lymphadenopathy, carotid bruits or deformity. RESPIRATORY: No SOB cough or wheezes. CARDIOVASCULAR: No CP, Palpitation, PND, Orthopnea, or angina. GASTROINTESTINAL: No Abd pain, Nausea or vomiting, no Diarrhea or constipation, No GI Bleed, no distention or masses. GENITOURINARY: Negative for Hematuria or UTI, no kidney stones. INTEGUMENT/BREAST: Negative for any muscular injury with mild osteoarthritis.. HEMATOLOGIC/LYMPHATIC: Negative for bleed or purpura. MUSCULOSKELTAL: Multiple bruises over the finding of his body mostly right elbow and hip area. NEURLOGICAL: No LOC, Sz or syncope, blurred vision dizziness or abnormality.. BEHAVIORAL/PSYCH: Negative. ENDOCRINE: Negative. PHYSICAL EXAMINATION: General Appearance: Alert, cooperative, no distress, appears stated age. Neck HEENT: Supple, no lymphadenopathy, no thyroid enlargement, no carotid bruits. Lungs: Clear to auscultation without crackles or wheezes no rhonchi, no deformity. Chest Wall: Chest wall normal expansion with deep inspiration no tenderness and no deformity was found on exam, no costochondral pain or discomfort. Heart: Regular rate and rhythm, S1, S2 normal, no murmur, rub or gallop. Back: Scoliosis mild tenderness in the lower lumbar area with mild bruise. Abdomen: Soft, non-tender, bowel sounds active all four quadrants, no masses, no organomegaly. Extremities: Right elbow and knee has slight bit of bruise decreased with positive pulse dorsalis pedis bilaterally. Skin: Skin color, texture, tugor normal, no rashes or lesions. Neurologic: Alert oriented x3 cranial nerves II through XII intact, no motor deficit, no abnormal balance or gait. ASSESSMENT AND PLAN: _Acute rhabdomyolysis: Much better so far with CK is down not causing any worsening kidney function will continue hydration keep watching kidney function on more regular basis. CK continued to decline and kidney function is much better so far. _Elevated troponin: With possible type II myocardial infarction from the severity of his rhabdomyolysis: Repeat EKG and consult cardiology repeat troponin again this morning. No further change in troponin patient's clear from cardiology standpoint. Echocardiogram report with ejection fraction of 55-60 percentile with mild to moderate aortic regurgitation no mitral stenosis regurgitation or prolapse was found and overall the size and contractility of the heart muscle is good. _Acute kidney injury: Much better GFR at 90 continue hydration. _Hypokalemia: Potassium supplement potassium is back to normal at this point. _Hyponatremia: Most likely secondary to dehydration with a challenge of the IV fluid nephrology changes IV from 0.9-0.45 which probably will help to increase his free water and should probably take care of the sodium level. _Metabolic acidosis: Continue sodium bicarbonate has been doing much better so far. _Mild anemia with over 1 g drop in hemoglobin most likely dilution from hydration which is pseudo anemia at this point no need to watch for any bleeding. _History of deep venous thrombosis: Continue anticoagulation with Eliquis. _Recurrent bladder infection and urinary deformity: Had recurrent infection in the past has been doing slightly better no UTI lately urine sample was not totally clean not been able to make a decision and reliable idea whether this is UTI or not. _Transaminitis: Not clear whether this is an alcoholism or not specially with the AST to ALT 05/03 the patient has nonalcoholic and this is most likely the effect of hepatorenal syndrome from the severity of dehydration expect kidney function to improve probably the liver enzyme to improve shortly after. Ultrasound of the abdomen no gallstone and obscured spleen by bowel gas with normal right and left kidney liver is hematogenous the intrahepatic portion of the IVC and proximal abdominal aorta are within normal limit there is no evidence of cholelithiasis, common duct is unremarkable visualized of the pancreas are homogeneous and spleen is unremarkable as well. In the meanwhile a s expected with liver function test the planned back to be almost normal. _GI prophylaxis: Will start Pepcid 20 mg daily. _Debility: Continue PT OT and prepare hopefully for rehab. Discussion: Patient is doing much better today he is accepted to rehab will be transferred to [facility] [place] today. Objective - Vital Signs Vital signs: Vital Signs Temp 98.0 F 12/13/23 01:10 Pulse 63 12/13/23 01:10 Resp 16 12/13/23 01:10 BP 111/68 12/13/23 01:10 Pulse Ox 98 12/13/23 01:10 FiO2 Intake & Output 12/12/23 12/12/23 12/13/23 06:59 18:59 06:59 Intake Total 2100 Output Total 6 Balance 2093 Intake: Oral 2100 Output: Urine/Stool Mix 6 Other: Voiding Method Bedside Commode Bedside Commode # Voids 3 1 - Labs CBC & Chem 7: 12/12/23 05:13 12/13/23 03:10 Labs: Abnormal Lab Results - Last 24 Hours (Table) 12/12/23 12/12/23 Range/Units 05:13 05:13 RBC 3.77 L (4.40-5.60) X 10*6/uL Hgb 12.5 L (13.0-17.0) g/dL Hct 36.6 L (39.6-50.0) % MCV 97.1 H (80.0-97.0) FL MCH 33.2 H (27.0-32.0) pg MPV 9.3 L (9.5-12.2) FL Sodium 146 H (135-145) mmol/L Chloride 116 H (96-109) mmol/L Carbon Dioxide 19.6 L (21.6-31.8) mmol/L BUN/Creatinine Ratio 30.00 H (12.00-20.00) Ratio Calcium 8.5 L (8.7-10.3) mg/dL Creatine Kinase 487 H (35-257) U/L
--- NOTE | 2023-12-31 15:38 | CDI ---
Documentation Clarification Form Date: 12/31/2023 03:25:09 PM From: Aileen Moreira Phone: Admit Date: 12/09/2023 09:50:00 PM Patient Name: Tucker Cook Visit Number: [id number] Discharge Date: 12/13/2023 02:04:00 PM ATTENTION: The Clinical Documentation Specialists (CDI) and [facility] Coding Staff appreciate your assistance in clarifying documentation. Please respond to the clarification below the line at the bottom and electronically sign. The CDI & [facility] Coding staff will review the response and follow-up if needed. Please note: Queries are made part of the Legal Health Record. If you have any questions, please contact the author of this message via ITS. Doctor/Provider: Gentry Clayton Acute Rhabdomyolysis is documented per ED Note and throughout the Progress Notes. Additional clarification regarding the type of rhabdomyolysis is requested. History/Risk Factors: 67yo M, mechanical fall fell2 days ago; was on the floor for 12 hours w Hx frequent falls, ATN, CPS, COPD, dehydration, acuterhabdomyolysis, hypernatremia, NSTEMI II, Hx DVT on Eliquis Clinical Indicators: CK: 3957 Troponin: 0. 07 Creatinine: 0.8 ALT: 54 Treatment: Admitted start hydration consult nephrology and cardiology. His CK has improved significantly troponin and cardiactestingfailed to show any majorabnormality. Patient potassium become slightly bit low and was replaced. With histransaminitisand up going for totalabdominal ultrasoundit shows mostlycongested valerie than any finding consistent withgallstoneor any otherabnormality. Discharges to SNF Please clarify the type of rhabdomyolysis, if known: [ ] Traumatic rhabdomyolysis due to fall [ XX ] Traumatic rhabdomyolysis due to prolonged immobility [ ] Non traumatic rhabdomyolysis due (please specify) [ ] Other, please specify [ ] Unable to Determine (Template Last Revised: May 2020) WILFREDOD
== END 2023-12-13 14:04 | DRG 564 ==
LOC: EC 18:55 → 4SSUR 21:50 → 5NMEDONC 12-10 06:08
PROVIDERS: ADMIT Internal Medicine Geriatric Medicine; ATTEND Internal Medicine Geriatric Medicine
DX: T79.6XXA Traumatic ischemia of muscle, initial encounter (principal); I21.A1 Myocardial infarction type 2; N17.0 Acute kidney failure with tubular necrosis; E87.0 Hyperosmolality and hypernatremia; E87.20 Acidosis, unspecified; E87.1 Hypo-osmolality and hyponatremia; R29.6 Repeated falls; J44.9 Chronic obstructive pulmonary disease, unspecified; G89.4 Chronic pain syndrome; M16.11 Unilateral primary osteoarthritis, right hip; R03.1 Nonspecific low blood-pressure reading; E86.0 Dehydration; K76.1 Chronic passive congestion of liver; D64.9 Anemia, unspecified; E87.6 Hypokalemia; G56.01 Carpal tunnel syndrome, right upper limb; I35.1 Nonrheumatic aortic (valve) insufficiency; R53.81 Other malaise; R26.89 Other abnormalities of gait and mobility; S00.93XA Contusion of unspecified part of head, initial encounter; S50.01XA Contusion of right elbow, initial encounter; M25.561 Pain in right knee; W19.XXXA Unspecified fall, initial encounter; G25.0 Essential tremor; Y92.009 Unspecified place in unspecified non-institutional (private) residence as the place of occurrence of the external cause; Z68.21 Body mass index [BMI] 21.0-21.9, adult; Q64.70 Unspecified congenital malformation of bladder and urethra; Z91.81 History of falling; Z87.891 Personal history of nicotine dependence; Z79.01 Long term (current) use of anticoagulants; Z86.718 Personal history of other venous thrombosis and embolism; Z82.0 Family history of epilepsy and other diseases of the nervous system
CPT/HCPCS: 36415; 70450; 71046; 72125; 73502; 76700; 80048; 80053; 81001; 82550; 83605; 83735; 84132; 84484; 85025; 85027; 85610; 85730; 93005; 93306; 96361; 96365; 96366; 99285

== ENCOUNTER 2024-02-15 02:55 | Emergency (ER) | payer MEDICARE ==
--- NOTE | 2024-02-15 02:56 | ED ---
Fall HPI - General Stated Complaint: Fall Time Seen by Provider: 02/15/24 02:55 Source: RN notes reviewed, old records reviewed Mode of arrival: EMS Limitations: no limitations - History of Present Illness Initial Comments: This is a 68-year-old male to the ER for evaluation of pain presents today for evaluation of a fall on [place] abrasion to the head, patient presents to the ER without complaint no headache chest pain shortness breath abdominal pain. 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 Witnessed: no Place Fall Occurred: home Loss of Consciousness: none Prolonged Down Time?: no Symptoms Prior to Fall: none Location: head Severity: mild Severity scale (1-10): 2 Associated Symptoms: denies - Related Data Previous Rx's Medication Instructions Recorded Apixaban [Eliquis] 5 mg PO BID #60 tab 10/30/22 Acetaminophen Tab [Tylenol] 650 mg PO Q6HR PRN tab 12/12/23 Baclofen 10 mg PO AC-BID PRN #60 ml 12/12/23 Sodium Bicarbonate Tab 650 mg PO BID #60 tab 12/12/23 Tamsulosin HCl [Flomax] 0.4 mg PO DAILY #30 capsule 12/12/23 Allergies Allergy/AdvReac Type Severity Reaction Status Date / Time No Known Allergies Allergy Verified 02/15/24 02:57 Review of Systems ROS Statement: Those systems with pertinent positive or pertinent negative responses have been documented in the HPI. ROS Other: All systems not noted in ROS Statement are negative. Past Medical History Past Medical History: No Reported History, Deep Vein Thrombosis (DVT) Additional Past Medical History / Comment(s): DVT bilateral legs; exstrophy of bladder at , bladder was outside of body at , surgically repaired at about 6 years old, pt has foggy memory of details, pt has hx of right ankle wound treated at wound care center, treated twice topically History of Any Multi-Drug Resistant Organisms: None Reported Past Surgical History: Hernia Repair, Orthopedic Surgery Additional Past Surgical History / Comment(s): Bladder surgery to repair defect, bilateral knees, double hernia surgery, torn rotator cuff (left); bilat carpal tunnel Past Anesthesia/Blood Transfusion Reactions: No Reported Reaction Past Psychological History: No Psychological Hx Reported Additional Psychological History / Comment(s): Pt states he has become more emotional in the past year Smoking Status: Former smoker Past Alcohol Use History: Rare Past Drug Use History: Marijuana General Exam General appearance: alert, in no apparent distress Head exam: Present: atraumatic, normocephalic, normal inspection Eye exam: Present: normal appearance, PERRL, EOMI. Absent: scleral icterus, conjunctival injection, periorbital swelling ENT exam: Present: normal exam, mucous membranes moist Neck exam: Present: normal inspection. Absent: tenderness, meningismus, lymphadenopathy Respiratory exam: Present: normal lung sounds bilaterally. Absent: respiratory distress, wheezes, rales, rhonchi, stridor Cardiovascular Exam: Present: regular rate, normal rhythm, normal heart sounds. Absent: systolic murmur, diastolic murmur, rubs, gallop, clicks GI/Abdominal exam: Present: soft, normal bowel sounds. Absent: distended, tenderness, guarding, rebound, rigid Extremities exam: Present: normal inspection, full ROM, normal capillary refill. Absent: tenderness, pedal edema, joint swelling, calf tenderness Back exam: Present: normal inspection Neurological exam: Present: alert, oriented X3, CN II-XII intact Psychiatric exam: Present: normal affect, normal mood Skin exam: Present: warm, dry, intact, normal color. Absent: rash Course Vital Signs 02/15/24 02/15/24 02/15/24 02:56 03:57 04:57 Temperature 97.1 F L Pulse Rate 85 85 78 Respiratory 16 18 18 Rate Blood Pressure 131/82 107/70 99/70 O2 Sat by Pulse 97 96 97 Oximetry 02/15/24 02/15/24 07:36 08:13 Temperature 98.9 F 98.4 F Pulse Rate 76 71 Respiratory 18 18 Rate Blood Pressure 108/68 103/70 O2 Sat by Pulse 97 98 Oximetry - Reevaluation(s) Reevaluation #1: 02/15/24 03:02 Medical record is reviewed Reevaluation #2: Patient symptoms improved Reevaluation #3: Patient informed of results and questions answered Reevaluation #4: Was pt. sent in by a medical professional or institution (, PA, BI MANAGER, urgent care, hospital, or shelter...) When possible be specific @ -no Did you speak to anyone other than the patient for history (EMS, parent, family, police, friend...)? What history was obtained from this source @ -no Did you review nursing and triage notes (agree or disagree)? Why? @ -agree Are old charts reviewed (outside hosp., previous admission, EMS record, old EKG, old radiological studies, urgent care reports/EKG's, shelter records)? Report findings @ -yes Differential Diagnosis (chest pain, altered mental status, abdominal pain women, abdominal pain men, vaginal bleeding, weakness, fever, dyspnea, syncope, headache, dizziness, GI bleed, back pain, seizure, CVA, palpatations, mental health, musculoskeletal)? @ -prior EKG interpreted by me (3pts min.). @ -no X-rays interpreted by me (1pt min.). @ -yes negative for acute disease CT interpreted by me (1pt min.). @ -yes negative for acute disease U/S interpreted by me (1pt. min.). @ -no What testing was considered but not performed or refused? (CT, X-rays, U/S, labs)? Why? @ -none What meds were considered but not given or refused? Why? @ -none Did you discuss the management of the patient with other professionals (professionals i.e. , PA, BI MANAGER, lab, RT, psych nurse, high school social studies teacher, product marketing director, teacher, founder and chief executive officer, shelter case manager)? Give summary @ -no Was smoking cessation discussed for >3mins.? @ -no Was critical care preformed (if so, how long)? @ -no Were there social determinants of health that impacted care today? How? (Homelessness, low income, unemployed, alcoholism, drug addiction, transportation, low edu. Level, literacy, decrease access to med. care, long-term, rehab)? @ -none Was there de-escalation of care discussed even if they declined (Discuss DNR or withdrawal of care, Hospice)? DNR status @ -no What co-morbidities impacted this encounter? (DM, HTN, Smoking, COPD, CAD, Cancer, CVA, ARF, Chemo, Hep., AIDS, mental health diagnosis, sleep apnea, morbid obesity)? @ -none Was patient admitted / discharged? Hospital course, mention meds given and route, prescriptions, significant lab abnormalities, going to OR and other pertinent info. @ - 68 male to the ER for evaluation cold coag secondary to fall on anticoagulation, patient has normal CT scan and x-rays here in the ER can be discharged home patient resolved has no complaints in the ER can be discharged Discharge Undiagnosed new problem with uncertain prognosis? @ -no Drug Therapy requiring intensive monitoring for toxicity (Heparin, Nitro, Insulin, Cardizem)? @ -no Were any procedures done? @ -no Diagnosis/symptom? @ -Fall no injury found Acute, or Chronic, or Acute on Chronic? @ -Acute Uncomplicated (without systemic symptoms) or Complicated (systemic symptoms)? @ -Complicated Side effects of treatment? @ -no Exacerbation, Progression, or Severe Exacerbation? @ -exacerbation Poses a threat to life or bodily function? How? (Chest pain, USA, PA, pneumonia, PE, COPD, DKA, ARF, appy, cholecystitis, CVA, Diverticulitis, Homicidal, Suicidal, threat to staff... and all critical care pts) @ -no Medical Decision Making - Medical Decision Making 68 male to the ER for evaluation cold coag secondary to fall on anticoagulation, patient has normal CT scan and x-rays here in the ER can be discharged home patient resolved has no complaints in the ER can be discharged - Radiology Data Radiology results: report reviewed (CT brain C-spine chest and pelvis x-ray is negative for acute disease), image reviewed Disposition Clinical Impression: Fall, Head injury Disposition: HOME SELF-CARE Condition: Good Instructions (If sedation given, give patient instructions): Fall Prevention for Older Adults (ED) Is patient prescribed a controlled substance at d/c from ED?: No Referrals: Gentry Clayton MD [Primary Care Provider] - 1-2 days Time of Disposition: 04:15
--- NOTE | 2024-02-15 03:33 | CT ---
EXAM: CT Head Without Intravenous Contrast CLINICAL HISTORY: ITS.REASON CT Reason: fall TECHNIQUE: Axial computed tomography images of the head/brain without intravenous contrast. CTDI is 45.2 mGy and DLP is 1059 mGy-cm. This CT exam was performed using one or more of the following dose reduction techniques: automated exposure control, adjustment of the mA and/or kV according to patient size, and/or use of iterative reconstruction technique. COMPARISON: CT head on 12/09/2023 FINDINGS: Brain: No acute infarct or hemorrhage identified. No extra-axial fluid collection. No mass effect or midline shift. Scattered areas of hypoattenuation in the supratentorial white matter likely represent chronic small vessel ischemic changes. Encephalomalacia in the right parieto-occipital region. Ventricles and sulci: Prominence of the ventricles and sulci is likely secondary to cerebral volume loss. Bones: Normal. No bony lesion or acute fracture. Subcutaneous tissues: Normal. Sinuses: Mild mucosal thickening in the ethmoid air cells and frontal sinuses. Mastoid air cells: Trace fluid in the left mastoid air cells. Orbits: Grossly unremarkable. Other: Atherosclerotic calcifications in the intracranial vasculature. IMPRESSION: 1. No acute intracranial abnormality. 2. Chronic small vessel ischemic changes and cerebral volume loss. Encephalomalacia in the right parieto-occipital region. EXAM: CT Cervical Spine Without Intravenous Contrast CLINICAL HISTORY: ITS.REASON CT Reason: fall TECHNIQUE: Axial computed tomography images of the cervical spine without intravenous contrast. CTDI is 7.5 mGy and DLP is 217.1 mGy-cm. This CT exam was performed using one or more of the following dose reduction techniques: automated exposure control, adjustment of the mA and/or kV according to patient size, and/or use of iterative reconstruction technique. COMPARISON: CT C-spine on 12/09/2023 FINDINGS: Bones: Normal alignment. No acute fracture or bony lesion. Disc spaces: No subluxation. Degenerative changes of the spine. Soft tissues: Normal. Other: Trace fluid in the left mastoid air cells. Atherosclerotic changes of the vasculature. IMPRESSION: No acute traumatic abnormality.
--- NOTE | 2024-02-15 04:10 | XR ---
EXAM: XR Pelvis, 1 or 2 Views CLINICAL HISTORY: ITS.REASON XR Reason: fall TECHNIQUE: Frontal view of the pelvis. COMPARISON: None FINDINGS: Bones/joints: Wide diastases of the pubic symphysis is age indeterminate without prior exams available for comparison. Mild degenerative changes of the hips. Degenerative changes of visualized lower lumbar spine. No acute fracture. No dislocation. Soft tissues: Unremarkable. Other findings: Excreted contrast within the bladder. IMPRESSION: Wide diastases of the pubic symphysis is age indeterminate without prior exams available for comparison.
--- NOTE | 2024-02-15 04:11 | XR ---
EXAM: XR Chest, 1 View CLINICAL HISTORY: ITS.REASON XR Reason: fall TECHNIQUE: Frontal view of the chest. COMPARISON: Chest radiograph on 12/09/2023 FINDINGS: Hardware: None. Lungs/pleura: Normal. No focal consolidation. No pleural effusion or pneumothorax. Heart/mediastinum: Normal. No cardiomegaly. Soft tissues: Unremarkable. Bones: Probably old fracture deformity of the distal left clavicle. Upper abdomen: Normal. IMPRESSION: 1. No acute disease identified. 2. Probably old fracture deformity of the distal left clavicle.
[2024-02-15 05:25] VITALS: RESP 18
[2024-02-15 08:23] VITALS: BP 103/70; PULSE 71; TEMP 98.4
== END 2024-02-15 08:22 | disposition home or self-care (01) ==
LOC: EC 02:55
DX: S09.90XA Unspecified injury of head, initial encounter (principal); Z87.891 Personal history of nicotine dependence; W18.30XA Fall on same level, unspecified, initial encounter; Y92.009 Unspecified place in unspecified non-institutional (private) residence as the place of occurrence of the external cause
CPT/HCPCS: 70450; 71045; 72125; 72170; 99284